=== PATIENT | male | born 1960 | race Caucasian/White ===

== ENCOUNTER 2016-08-05 09:44 | Emergency (ER) | payer OTHER ==
[~2016-08-05] VITALS: Ht 177.8 cm; Wt 113.1 kg
[~2016-08-05 09:44] MED LIST: ONDA4TAB7 SL
[2016-08-05 09:47] VITALS: Ht 177.8 cm; Wt 113.1 kg
[2016-08-05] MEDS ORDERED: MoRPHine SULFATE 10 MG/ML CARP/VIAL IV STA (10:00)
[2016-08-05] MEDS ORDERED: ONDANSETRON INJ 2 MG/ML 2 ML VIAL IV STA (10:00)
[2016-08-05] MEDS ORDERED: SODIUM CHLORIDE 0.9% 1000ML 1,000 ML IV STA (10:00)
[2016-08-05] MEDS ORDERED: OPTIRAY 320 IV PRN (10:15)
[2016-08-05 10:16] LABS: BASO % 0.1 %; BASO ABS # 0.01 K/uL (0-0.2); COMPLETE YES; EOS % 0.1 %; HEMATOCRIT 48.9 % (42-52); IG% 0.2 %; LYMPH % 7.3 %; LYMPH ABS # 0.65 K/uL (1.2-3.4); MEAN CELL VOLUME 89.2 fL (80-100); MEAN CORPUSCULAR HEMOGLOBIN 30.7 pg (25-34); MEAN CORPUSCULAR HGB CONC 34.4 g/dl (32-36); MEAN PLATELET VOLUME 9.5 fL (7.4-10.4); MONO % 2.1 %; NEUT % 90.2 %; PLATELET COUNT 192 K/uL (130-400); RED BLOOD COUNT 5.48 M/uL (4.7-6.1); WHITE BLOOD COUNT 8.88 K/uL (4.8-10.8)
[2016-08-05 10:38] LABS: BUN/CREATININE RATIO 9.4 (10-20); CALCIUM 9.7 mg/dl (8.5-10.1); CREATININE 1.1 mg/dl (0.60-1.40); POTASSIUM 4.1 mmol/L (3.5-5.1)
--- NOTE | 2016-08-05 12:00 | DIAGNOSTIC IMAGING REPORT ---
CT SCAN OF THE ABDOMEN AND PELVIS WITH IV CONTRAST CLINICAL HISTORY: Epigastric abdominal pain. COMPARISON STUDY: Abdominal CT dated 02/10/2013. TECHNIQUE: Following the IV administration of 119 cc of Optiray 320, CT scan of the abdomen and pelvis is performed from the lung bases to the proximal femora. Images are reviewed in the axial, sagittal, and coronal planes. IV contrast was administered without complication. Automated dose control exposure was utilized. CT DOSE: 1248.43 mGy.cm FINDINGS: Lung bases: The heart is normal in size and without pericardial effusion. Coronary artery calcifications are noted. There is a small hiatal hernia. A calcification containing nodule in the right middle lobe is unchanged. The lung bases are otherwise clear. Liver: The contrast-enhanced liver is enlarged, measuring 22 cm in length. The liver demonstrates diffusely diminished attenuation consistent with hepatic steatosis. Fatty sparing is seen adjacent to the gallbladder fossa. There is no intrahepatic biliary ductal dilatation. The hepatic veins and portal veins are patent. Gallbladder: Unremarkable. Spleen: Normal in size and attenuation. Pancreas: Unremarkable. Adrenal glands: Unremarkable. Kidneys: The contrast enhanced kidneys are normal in size. There is mild to moderate right hydronephrosis, with postoperative change seen at the right ureteropelvic junction. The right ureter is normal in caliber. There is no left-sided Hydronephrosis. The kidneys enhance symmetrically. A 1.2 cm cyst is seen in the right upper pole. Additional subcentimeter cortical hypodensities also likely represent cysts but are too small for definitive characterization. Abdominal vasculature: The abdominal aorta is normal in course and caliber noting minimal atherosclerotic calcification. Bowel: The small bowel and colon are normal in course and caliber. There is mild colonic diverticulosis without CT evidence of acute diverticulitis. Mild colonic fecal retention is observed. The appendix is well-visualized and normal. Peritoneum: There is no intraperitoneal free air or abdominal ascites. There is a fat-containing umbilical hernia. Lymphadenopathy: None. Pelvic viscera: The bladder, prostate, and seminal vesicles are normal as visualized. Skeletal structures: There is mild lumbosacral spondylosis. Degenerative changes noted at the sacroiliac joints. No lytic or blastic lesions are seen. IMPRESSION: 1. There are no acute infectious or inflammatory findings in the abdomen or pelvis. 2. There is mild to moderate right hydronephrosis with surgical clips seen at the right ureteropelvic junction. The right ureter is normal in caliber and this is similar appearance to the 02/10/2013 examination. 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 Correlation with the clinical findings and the patient's medical history required. 3. The kidneys enhance symmetrically. There is no left-sided hydronephrosis. 4. Hepatomegaly and severe hepatic steatosis. 5. Mild colonic diverticulosis without CT evidence of acute diverticulitis. 6. Additional findings as above. Electronically signed by: Anthony Jesus M.D. 08/05/2016 11:57 AM Dictated Date/Time: 08/05/2016 11:34 AM
[2016-08-05] MEDS ORDERED: MoRPHine SULFATE 4 MG/ML 1 ML CARP\\VIAL IV STA (12:57)
--- NOTE | 2016-08-05 13:45 | DIAGNOSTIC IMAGING REPORT ---
SINGLE VIEW CHEST CLINICAL HISTORY: Atypical chest pain. FINDINGS: An AP, portable, upright chest radiograph is compared to study dated 02/10/2013. Correlation is made with abdominal CT dated 08/05/2016. The examination is degraded by portable technique and apical positioning. The cardiomediastinal silhouette is unremarkable. There is mild elevation of the right hemidiaphragm. The lungs and pleural spaces are clear. No pneumothorax is seen. The bony thorax is grossly intact. IMPRESSION: No active disease in the chest. Electronically signed by: Anthony Jesus M.D. 08/05/2016 1:44 PM Dictated Date/Time: 08/05/2016 1:43 PM
--- NOTE | 2016-08-05 15:40 | EMERGENCY ROOM VISIT NOTE ---
History Report prepared by Laurita: Shanon Nuñez Under the Supervision of: Dr. Jaime Lopez D.O. First contact with patient: 09:51 Chief Complaint: ABDOMINAL PAIN Stated Complaint: ABD. PAIN Nursing Triage Summary: pt c/o pain in abd up in diaphragm area started last night around 2200. feels nauseated vomited x2 this am, denies any diarrhea History of Present Illness The patient is a 56 year old male who presents to the Emergency Room with complaints of worsening epigastric abdominal pain that started last night around 2200. He states that it feels like "someone ramming an ice pick into his gut." The pain does not radiate. The pain started after he ate a half of a box of Cheerios and drank a Coke. The patient has experienced similar pain the past and was diagnosed with severe gas. The pain is relieved with belching, but only momentarily. He states that the pain is not influenced by movement or breathing. The patient is also experiencing nausea and vomiting that started last night. His most recent bowel movement was this morning and he states that it was normal. He denies hemoptysis, diarrhea, pain or burning with urination, and lower extremity edema. He also denies any history of blood clots or cancer, along with any recent trips. The patient still has his gallbladder and appendix. Source of History: patient Onset: last night around 2200 Position: abdomen (epigastric) Quality: other ("someone ramming an ice pick into his gut" ) Timing: worsening Modifying Factors (Relieving): other (belching) Associated Symptoms: + nausea, + vomiting, No diarrhea, No urinary symptoms (pain or burning with urination) Note: no hemoptysis, no lower extremity edema Review of Systems See HPI for pertinent positives & negatives. A total of 10 systems reviewed and were otherwise negative. Past Medical & Surgical Medical Problems: (1) Hydronephrosis Family History No pertinent family history Social History Smoking Status: Never Smoker Alcohol Use: occasionally Occupation Status: employed Current/Historical Medications No Active Prescriptions or Reported Meds Allergies Coded Allergies: No Known Allergies (Verified , 08/28/02) Uncoded Allergies: ANTIBIOTIC ? (Allergy, Unknown, redness,fever,shakes, 02/10/13) N (Allergy, Unknown, 08/28/02) Physical Exam Vital Signs Date Time Temp Pulse Resp B/P Pulse Ox O2 Delivery O2 Flow Rate FiO2 08/05/16 16:47 36.5 73 23 155/99 92 08/05/16 16:39 73 23 155/99 92 08/05/16 16:34 69 21 93 08/05/16 16:29 69 15 95 08/05/16 16:24 76 16 91 08/05/16 16:19 84 25 90 08/05/16 16:15 159/113 08/05/16 16:14 70 24 91 08/05/16 16:09 76 24 90 08/05/16 16:04 84 23 92 08/05/16 15:59 79 25 93 08/05/16 15:54 86 24 92 08/05/16 15:49 71 22 93 08/05/16 15:44 85 25 91 08/05/16 15:39 77 19 90 08/05/16 15:34 74 20 90 08/05/16 15:29 72 22 90 08/05/16 15:24 92 26 90 08/05/16 15:19 72 22 94 08/05/16 15:14 91 28 90 08/05/16 15:09 96 23 92 08/05/16 14:59 76 16 94 08/05/16 14:54 75 22 90 08/05/16 14:50 110 16 123/89 96 Room Air 08/05/16 14:49 101 17 94 08/05/16 14:45 65 Room Air 08/05/16 14:44 73 21 96 08/05/16 14:39 89 21 123/89 84 08/05/16 14:34 73 21 80 08/05/16 14:29 73 20 84 08/05/16 14:24 77 22 85 08/05/16 14:19 73 20 75 08/05/16 14:14 79 24 80 08/05/16 14:09 72 20 88 08/05/16 14:04 84 21 88 08/05/16 13:59 77 24 87 08/05/16 13:54 74 20 95 08/05/16 13:49 70 14 87 08/05/16 13:45 176/101 08/05/16 13:44 74 20 76 08/05/16 13:39 78 23 82 08/05/16 13:34 75 22 76 08/05/16 13:29 78 22 82 08/05/16 13:26 66 1/21/17 13:24 86 23 85 08/05/16 13:19 78 18 90 08/05/16 13:11 78 20 165/98 93 08/05/16 13:08 165/98 08/05/16 11:56 84 16 196/116 97 Room Air 08/05/16 09:47 36.5 62 18 168/115 96 Room Air Physical Exam GENERAL: alert, sitting up in bed, uncomfortable appearing and holding epigastric region, well nourished, no distress, non-toxic EYE EXAM: normal conjunctiva OROPHARYNX: no exudate, no erythema, lips, buccal mucosa, and tongue normal and mucous membranes are moist NECK: supple, no nuchal rigidity, no adenopathy, non-tender LUNGS: Clear to auscultation. Normal chest wall mechanics HEART: no murmurs, S1 normal and S2 normal ABDOMEN: abdomen soft, tender to palpation in epigastric region, normo-active bowel sounds, no masses, no rebound or guarding. BACK: Back is symmetrical on inspection and there is no deformity, no midline tenderness, no CVA tenderness. SKIN: no rashes and no bruising UPPER EXTREMITIES: upper extremities are grossly normal. LOWER EXTREMITIES: No pitting edema. NEURO EXAM: Normal sensorium, cranial nerves II-XII grossly intact, normal speech, no gross weakness of arms, no gross weakness of legs. Medical Decision & Procedures ER Provider Diagnostic Interpretation: Xray results per the radiologist and my interpretation. Other results have been interpreted by the radiologist and reviewed by me. SINGLE VIEW CHEST IMPRESSION: No active disease in the chest. Electronically signed by: Anthony Jesus M.D. 08/05/2016 1:44 PM Dictated Date/Time: 08/05/2016 1:[address] SCAN OF THE ABDOMEN AND PELVIS WITH IV CONTRAST IMPRESSION: 1. There are no acute infectious or inflammatory findings in the abdomen or pelvis. 2. There is mild to moderate right hydronephrosis with surgical clips seen at the right ureteropelvic junction. The right ureter is normal in caliber and this is similar appearance to the 02/10/2013 examination. 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 Correlation with the clinical findings and the patient's medical history required. 3. The kidneys enhance symmetrically. There is no left-sided hydronephrosis. 4. Hepatomegaly and severe hepatic steatosis. 5. Mild colonic diverticulosis without CT evidence of acute diverticulitis. 6. Additional findings as above. Electronically signed by: Anthony Jesus M.D. 08/05/2016 11:57 AM Laboratory Results 08/05/16 10:05 Red Blood Count 5.48, Mean Corpuscular Volume 89.2, Mean Corpuscular Hemoglobin 30.7, Mean Corpuscular Hemoglobin Concent 34.4, Mean Platelet Volume 9.5, Neutrophils (%) (Auto) 90.2, Lymphocytes (%) (Auto) 7.3, Monocytes (%) (Auto) 2.1, Eosinophils (%) (Auto) 0.1, Basophils (%) (Auto) 0.1, Neutrophils # (Auto) 8.00, Lymphocytes # (Auto) 0.65, Monocytes # (Auto) 0.19, Eosinophils # (Auto) 0.01, Basophils # (Auto) 0.01 08/05/16 10:05 Test 08/05/16 10:05 08/05/16 11:05 08/05/16 17:00 White Blood Count 8.88 K/uL (4.8-10.8) Red Blood Count 5.48 M/uL (4.7-6.1) Hemoglobin 16.8 g/dL (14.0-18.0) Hematocrit 48.9 % (42-52) Mean Corpuscular Volume 89.2 fL (80-100) Mean Corpuscular Hemoglobin 30.7 pg (25-34) Mean Corpuscular Hemoglobin Concent 34.4 g/dl (32-36) Platelet Count 192 K/uL (130-400) Mean Platelet Volume 9.5 fL (7.4-10.4) Neutrophils (%) (Auto) 90.2 % Lymphocytes (%) (Auto) 7.3 % Monocytes (%) (Auto) 2.1 % Eosinophils (%) (Auto) 0.1 % Basophils (%) (Auto) 0.1 % Neutrophils # (Auto) 8.00 K/uL (1.4-6.5) Lymphocytes # (Auto) 0.65 K/uL (1.2-3.4) Monocytes # (Auto) 0.19 K/uL (0.11-0.59) Eosinophils # (Auto) 0.01 K/uL (0-0.5) Basophils # (Auto) 0.01 K/uL (0-0.2) RDW Standard Deviation 42.6 fL (36.4-46.3) RDW Coefficient of Variation 13.0 % (11.5-14.5) Immature Granulocyte % (Auto) 0.2 % Immature Granulocyte # (Auto) 0.02 K/uL (0.00-0.02) Anion Gap 13.0 mmol/L (3-11) Est Creatinine Clear Calc Drug Dose 94.4 ml/min Estimated GFR () 86.5 Estimated GFR (Non- 74.6 BUN/Creatinine Ratio 9.4 (10-20) Calcium Level 9.7 mg/dl (8.5-10.1) Total Bilirubin 0.5 mg/dl (0.2-1) Direct Bilirubin 0.2 mg/dl (0-0.2) Aspartate Amino Transf (AST/SGOT) 52 U/L (15-37) Alanine Aminotransferase (ALT/SGPT) 86 U/L (12-78) Alkaline Phosphatase 114 U/L (45-117) Total Protein 8.0 gm/dl (6.4-8.2) Albumin 4.2 gm/dl (3.4-5.0) Lipase 219 U/L (73-393) Troponin I < 0.015 ng/ml (0-0.045) Laboratory results per my review. Medications Administered Medications (Trade) Dose Ordered Sig/Cj Route Start Time Stop Time Status Last Admin Dose Admin Sodium Chloride (Nss 1000ml) 1,000 ml @ 999 mls/hr Q1H1M STAT IV 08/05/16 10:00 08/05/16 11:00 DC 08/05/16 10:00 999 MLS/HR Morphine Sulfate (MoRPHine SULFATE INJ) 6 mg NOW STAT IV 08/05/16 10:00 08/05/16 10:03 DC 08/05/16 10:10 6 MG Ondansetron HCl (Zofran Inj) 4 mg NOW STAT IV 08/05/16 10:00 08/05/16 10:03 DC 08/05/16 10:09 4 MG Morphine Sulfate (MoRPHine SULFATE INJ) 4 mg NOW STAT IV 08/05/16 12:57 08/05/16 12:58 DC 08/05/16 13:10 4 MG ECG Indication: abdominal pain Rate (beats per minute): 63 Rhythm: sinus rhythm Findings: RBBB (incomplete), left axis deviation Change: Repeat EKG on 08/05/2016 showed sinus rhythm, rate of 64, left axis deviation, no ectopy, R-R' in septal leads, no change from first EKG on 08/05/2016 ED Course ED COURSE: Vital signs were reviewed and showed hypertension. The patients medical record was reviewed The above diagnostic studies were performed and reviewed. ED treatments and interventions as stated above. 0954: The patient was evaluated in room B8. A complete history and physical examination was performed. 1000: Ordered Zofran 4 mg IV, Morphine Sulfate 6 mg IV, Sodium Chloride 1000 ml @ 999 mls/hr IV 1033: I reassessed the patient. His pain has improved with the morphine. 1206: I reevaluated the patient. He developed left-sided chest pain that he described as sharp and stabbing. The pain lasted for several seconds and radiated from his abdomen into his chest. The pain was relieved when he pushed on his chest. A repeat EKG was performed. 1257: Ordered Morphine Sulfate 4 mg IV 1356: Upon reevaluation, the patient is feeling better. His ride home is here now. I discussed my findings with the patient and he understands and agrees with the treatment plan. Based on the patients age, coexisting illnesses, exam and lab findings the decision to treat as an outpatient was made. The patient remained stable while under my care. The patient appeared well at the time of discharge. 1420: The nurse informed me that the patient was hypoxic while he was sleeping, so we are going to watch him for a little while before he leaves. 1630: I reassessed and updated the patient. He is going home now. Medical Decision Differential diagnoses includes but is not limited to gastritis, peptic ulcer disease, GERD, gallbladder disease, pancreatitis, small bowel obstruction, acute coronary syndrome, pericarditis, ischemic bowel, irritable bowel disease, irritable bowel syndrome, appendicitis, diverticulitis, malignancy, hernia, urinary tract infection, torsion, perforation, trauma, infectious. Patient is a 56-year-old male who presents the ER for epigastric abdominal pain which started last night has been persistent. He notes that he feels very bloated. He has had this once before in the past. Normal bowel movements. No fevers. Labs including CBC, BMP, bilirubin and lipase are unremarkable. LFTs are slightly elevated at 52 and 86. His troponin was negative with pain has been present since last night. EKG was unremarkable. Chest x-ray was normal. While in the ER he did complain of pain radiating from his belly up into his chest which improved with holding his chest wall. CT of his abdomen and pelvis was unremarkable with exception of some swelling of his proximal kidney which is secondary to a surgery performed as a child per the patient. I do believe that this was more muscle skeletal in nature/abdominal. EKG was unremarkable at this time and unchanged. Patient was given 2 doses of morphine. When he sleeps he does become hypoxic and apneic. He clearly has obstructive sleep apnea. He was updated regards to this. He has not seen PCP since the early . I also believe that has undiagnosed hypertension. He was informed of this. He notes he has a grandchild and will see/obtain a new primary care doctor early next week for obstructive sleep apnea and uncontrolled hypertension. As to his abdominal pain I am uncertain of the etiology at this point. He has no urinary symptoms and consequently did not wait for urine prior to discharge. I did hold him for extra several hours for a total of 8 to allow the morphine to wear off as he has obstructive sleep apnea. He is discharged around 5:30 PM the follow-up with a new primary care doctor early next week. Discussed with Pt concerning signs and symptoms to watch out for. Pt was instructed to follow up with their PCP and discussed with the patient their option to return to the ED at anytime for persistent or worsening symptoms. The appropriate anticipatory guidance and out-patient management, including indications for return to the emergency department, were explained at length to the patient and understood. Impression Primary Impression: Diffuse abdominal pain Additional Impressions: Sleep apnea Hypertension Scribe Attestation The scribe's documentation has been prepared under my direction and personally reviewed by me in its entirety. I confirm that the note above accurately reflects all work, treatment, procedures, and medical decision making performed by me. Departure Information Dispostion Home / Self-Care Prescriptions No Active Prescriptions or Reported Meds Referrals No Doctor, Assigned (PCP) Forms Call Back Authorization, HOME CARE DOCUMENTATION FORM, IMPORTANT VISIT INFORMATION Patient Instructions Abdominal Pain - [facility], Formerly [facility], [facility] Additional Instructions Please follow up with your primary care doctor with in the next 24 hours. Any worsening of your symptoms, please return to the ED immediately. This includes any chest pain, shortness of breath, blood in her stool, belly pain, passing out , worsening pain, fevers greater than 100.4, or any other concerning signs or symptoms from your standpoint. You were given medications during this visit that will inhibit your ability to drive, operate machinery and work. Please do NOT drive, operate machinery or work for the next 12hrs. Please take Tylenol or Motrin as needed for the pain. Again you must follow with your primary care doctor for abdominal recheck in 24 hours. Problem Qualifiers Additional Impressions: Sleep apnea Sleep apnea type: unspecified type Qualified Codes: G47.30 - Sleep apnea, unspecified Hypertension Hypertension type: unspecified secondary hypertension Qualified Codes: I15.9 - Secondary hypertension, unspecified
[2016-08-05 16:47] VITALS: BP 155/99; PULSE 73; TEMP 36.5; O2SAT 92
[2016-08-05 17:47] LABS: URINE APPEARANCE CLEAR (CLEAR); URINE BILIRUBIN NEG (NEG); URINE COLOR YELLOW; URINE EPITHELIAL CELL AUTO 0-5 /lpf (0-5); URINE NITRITE NEG (NEG); URINE SPECIFIC GRAVITY > 1.045 (1.000-1.030); UROBILINOGEN NEG (NEG); ZZUR CULT IF INDIC CLEAN CATCH NO
[2016-08-05 17:52] LABS: MANUAL MICROSCOPIC REQUIRED? NO; REVIEW REQ? NO
== END 2016-08-05 16:47 | disposition home or self-care (01) ==
LOC: C.EDB 09:50
DX: R10.13 Epigastric pain (principal); G47.30 Sleep apnea, unspecified; I15.9 Secondary hypertension, unspecified

== ENCOUNTER → 2016-08-30 | Outpatient (CLI) | payer OTHER ==
--- NOTE | 2016-08-31 06:47 | SPLIT NIGHT TECHNICIAN REPORT ---
[facility] Split Night Polysomnogram - Fleet Technician Report Study date: 08/30/2016 Referring Physician: Jamie LUONG M.D. Name: FLASH BLACKBURN Fleet Technician: RENETTA Montalvo. Date of : 1960 Height: 56 years, Height 5' 10.5" Sex: Male Weight: 244 lbs Age: 56 Neck Circum: 19.5 INCHES BMI: Medications: 34.51 NONE LISTED Patient History PATIENT HAS HISTORY OF FEELING TIRED AND FATIGUE DURING THE DAY. ALSO, HAS WITNESSED APNEAS AND SNORING. HE IS HERE TODAY FOR AN EVALUATION OF HAN. ES S= 13 RM 5 Parameters Monitored NPSG: E1-M2, E2-M1, Fp1-M2, Fp2-M1, F3-M2, F4-M2, F4-M1, C3-M2, C4-M2, C4-M1, O1-M2, O2-M2, O2-M1, T3-M2, T4-M1, P3-M2, P4-M1, CHIN1, CHIN2, HR, EKG, Legs, PFLOW, SNOR, FLOW, CFLOW, Tidal Volume, THOR, ABDO, SpO2, PLTH, CPRESS, ETCO2 Wave, ETCO2, pH SLEEP SUMMARY DATA DIAGNOSTIC TREATMENT Lights Out: 10:11:14 PM 12:49:14 AM Lights On: 12:38:44 AM 6:21:44 AM Total Recording Time (TRT): 148.0 min. 332.5 min. Total Sleep Time (TST): 133.5 min. 287.0 min. NREM Time: 133.5 min. 187.0 min. REM Time: 0.0 min. 100.0 min. Sleep Period Time (SPT): 143.5 min. 328.5 min. Sleep Efficiency (SE): 91 % 86 % Sleep Latency: 4.0 min. 4.0 min. Arousal Index: 69.7 21.3 PAP Treatment Levels: 4, 6, 7, 8, 8/4, 10/6, 11/7, 12/8, 13/9, 14/10, 15/11, 16/12, 17/13, 18/14, 19/15, 20/15, 21/15, 22/15, 23/15, 24/16, 25/17, 26/18, 27/18 * Optimal Pressure(s) SLEEP STAGING DATA DIAGNOSTIC TREATMENT Duration (min) TST % Duration (min) TST % Stage Wake: 14.0 min. -- 45.5 min. -- WASO: 10.0 min. -- 41.5 min. -- NREM: 133.5 min. 100 % 187.0 min. 65 % Stage N1: 11.0 min. 8 % 32.5 min. 11 % Stage N2: 122.5 min. 92 % 132.0 min. 46 % Stage N3: 0.0 min. 0 % 22.5 min. 8 % REM: 0.0 min. 0 % 100.0 min. 35 % POSITIONAL DATA Event Count Index Event Count Index Supine: 130 91.3 169 41.7 Supine NREM: 130 91.3 131 46.1 Supine REM: N/A N/A 38 31 Non-Supine: 62 77.4 3 4.0 Non-Supine NREM: 62 77.4 2 7.3 Non-Supine REM: N/A N/A 1 2.1 AROUSAL SUMMARY DATA: Event Count Index Event Count Index Apnea Arousals: 117 67.9 66 25.7 Hypopnea Arousals: 21 9.4 9 1.9 Snore Arousals: 3 1.3 12 2.5 PLM Arousals: 3 1.3 0 0.0 Non-Specific Arousals: 8 3.6 15 3.1 Total Arousals: 155 69.7 102 21.3 MYOCLONUS (PLM) Event Count Index Event Count Index PLM: 35 15.7 0 0.0 PLM AROUSAL: 3 1.3 0 0.0 PLM W/O AROUSAL 35 15.7 0 0.0 PLM W/RESP EVENT 12 0.0 0 0.0 MYOCLONUS (PLM) Event Count Index Event Count Index LM: 4 82.7 55 11.5 LM AROUSAL: 4 1.8 3 0.6 LM W/O AROUSAL LM W/RESP EVENT LM NON SPECIFIC 77 34.6 36 7.5 HEART RATE DATA DIAGNOSTIC TREATMENT Sleep (bpm): 66 66 REM (bpm): N/A 93 NREM (bpm): 85 92 Tachycardia Count: 0 0 Tachycardia Duration: 0.00 0 Bradycardia Count: 0 0 Bradycardia Duration: 0.00 0 DIAGNOSTIC PORTION TREATMENT PORTION RESPIRATORY DATA Event Count Index Event Count Index AHI: -- 86.3 -- 35.7 RDI: -- 86.3 -- 36 Obstructive Apnea: 139 62.5 19 4.0 Central Apnea: 2 0.9 54 11.3 Mixed Apnea: 10 4.5 50 10.5 Hypopnea: 41 18.4 48 10.0 RERA: 0 0.0 1 0.2 Total Apneas: 151 67.9 123 25.7 RESPIRATORY DATA REM NREM SLEEP REM NREM SLEEP Supine Position: Obstructive Apneas: N/A 88 88 3 16 19 Central Apneas: N/A 1 1 4 50 54 Mixed Apneas: N/A 2 2 14 36 50 Hypopneas: N/A 39 39 16 29 45 RERA N/A 0 0 1 0 1 Total Supine Events: N/A 130 130 38 131 169 Supine AHI: N/A 91.3 91.3 31 46.1 41.7 Supine RDI: N/A 91.3 91.3 31.9 46.1 41.9 REM NREM SLEEP REM NREM SLEEP Non-Supine Position: Obstructive Apneas: N/A 51 51 0 0 0 Central Apneas: N/A 1 1 0 0 0 Mixed Apneas: N/A 8 8 0 0 0 Hypopneas: N/A 2 2 1 2 3 RERA N/A 0 0 0 0 0 Total Supine Events: N/A 62 62 1 2 3 Supine AHI: N/A 77.4 77.4 2.1 7.3 4.0 Supine RDI: N/A 77.4 77.4 2.1 7.3 4.0 OXYGEN DESTAURATION DATA: Event Count Index Event Count Index REM Desaturations: N/A N/A 34 20.4 NREM Desaturations: 170 76.4 132 42.4 SNORE DATA DIAGNOSTIC TREATMENT Snore Time: 18.4 12:53:14 AM Snore TST%: 6 8 Snore Arousal Count: 3 12 Snore Arousal Index: 1.3 2.5 Desaturation Event Summary: Minimum %SpO2 Event Count Mean/Min/Max Duration(sec.) Desaturation Index % Time In Bed > 90 321 34.4 / 7.0 / 97.5 66.6 60.6 86 - 90 62 26.8 / 7.0 / 42.8 53.4 14.6 81 - 85 7 21.6 / 7.8 / 31.0 7.2 12.2 76 - 80 2 13.0 / 8.5 / 17.5 3.2 7.8 71 - 75 1 13.8 / 13.8 / 13.8 3.2 3.9 66 - 70 0 N/A 0.0 0.9 61 - 65 0 N/A 0.0 0.1 56 - 60 0 N/A 0.0 0.0 51 - 55 0 N/A 0.0 0.0 < 50 0 N/A 0.0 0.0 OXYGEN SATURATION DATA DIAGNOSTIC TREATMENT SpO2 Mean Sleep: 85 % 92 % SpO2 Mean REM: N/A % 93 % SpO2 Mean NREM: 85 % 92 % SpO2 Minimum Sleep: 65 % 63 % SpO2 Minimum REM: N/A % 64 % SpO2 Minimum NREM: 65 % 63 % Time Below 90% (TST): 91.9 65.2 Time Below 88% (TST): 81.6 52.2 Total REM NREM Awake <50% 0.0 min. 0.0 min. 0.0 min. 0.0 min. 51 - 60% 0.1 min. 0.0 min. 0.0 min. 0.1 min. 61 - 70% 5.0 min. 0.7 min. 3.1 min. 1.2 min. 71 - 80% 55.6 min. 6.6 min. 43.0 min. 6.0 min. 81 - 90% 127.7 min. 15.1 min. 102.9 min. 9.7 min. 91 - 100% 289.3 min. 77.7 min. 169.5 min. 42.1 min. Average 90 93 89 91 Minimum SpO2 60 64 63 60 Desaturation Event Index 44.1 20.4 56.5 22.2 # Desat. Events below 89% 296 23 265 8 Time(%) with Saturation below 89% 33.1 3.6 26.6 2.8 Time(min.) with Saturation below 89% 157.9 17.2 127.3 13.4 Recording Fleet Technician Comments: Mr. Blackburn slept in the right and supine positions. PAC's noted. Leg movements noted. No bruxism noted. Snoring was noted and scored as a 4 on a scale of 1 through 5. (0=no snoring, 5=snoring loud enough to be heard through a closed door or down the rios way) At 12:38 am Mr. Blackburn has met specific Split-Night criteria during the diagnostic portion of this study. CPAP was initiated at +4 CMH2O and up-titrated to a level of +8 CMH2O. From pressures 4-8cwp central and mixed apneas were significantly noted. Therefore, I switched to BIPAP starting at 8/4. I up-titrated to 15/11 and central and mixed apneas were still significantly noted. I started a rate of 10 due to the central and mixed apneas. I up-titrated to 27/18 and increased the rate to 14 due to central and mixed apneas. A Resmed Mirage Quattro full face size medium mask was used during titration Mr. Blackburn awoke to use the restroom 0 times during the night. Mr. Blackburn stated I slept as well as I do when I am in my own bed. Final Pressure Settings: 27/18 with a rate of 14. The final report will be interpreted and signed by a sleep physician. The completed physician report will then be placed in the patient medical record. Therapy Event: Therapy (cm H20) 0 4 6 7 8 8/4 10/6 11/7 Total Time at Pressure (min.) 147.5 19.3 15.3 8.0 14.5 9.2 6.3 6.7 TST at Pressure (min.) 133.5 7.8 6.8 5.5 11.0 6.7 5.3 5.7 # Periods 1 1 1 1 1 1 1 1 Sleep Onset (min.) 4.0 4.0 0.0 0.0 0.0 0.0 0.0 0.0 REM Onset (min.) N/A N/A N/A N/A N/A N/A N/A N/A Sleep Efficiency % 90 40 44 68 75 72 84 85 Wakefulness (%) 9.5 59.5 55.4 31.4 24.2 27.1 15.8 14.8 Wakefulness (min.) 14.0 11.5 8.5 2.5 3.5 2.5 1.0 1.0 NREM 1 (%) 7.5 35.3 41.3 10.4 7.8 9.4 7.9 22.3 NREM 1 (min.) 11.0 6.8 6.3 0.8 1.1 0.9 0.5 1.5 NREM 2 (%) 83.1 5.2 3.3 58.2 68.0 63.4 76.2 62.9 NREM 2 (min.) 122.5 1.0 0.5 4.6 9.9 5.8 4.8 4.2 NREM 3 (%) 0.0 0.0 0.0 0.0 0.0 0.0 0.0 0.0 NREM 3 (min.) 0.0 0.0 0.0 0.0 0.0 0.0 0.0 0.0 REM (%) 0.0 0.0 0.0 0.0 0.0 0.0 0.0 0.0 REM (min.) 0.0 0.0 0.0 0.0 0.0 0.0 0.0 0.0 # Arousals 155 10 8 6 11 6 7 5 Arousal Index 69.7 76.6 70.2 65.8 60.1 53.6 79.1 52.3 # Snore 325 3 2 3 9 4 6 6 Snore Index 146.1 23.0 17.5 32.9 49.1 35.7 67.8 62.8 AHI 86.3 99.6 87.7 87.7 76.4 62.6 56.5 62.8 AHI Supine 91.3 99.6 87.7 87.7 76.4 62.6 56.5 62.8 AHI Non-Supine 77.4 N/A N/A N/A N/A N/A N/A N/A NREM AHI 86.3 99.6 87.7 87.7 76.4 62.6 56.5 62.8 REM AHI N/A N/A N/A N/A N/A N/A N/A N/A RDI 86.3 99.6 87.7 87.7 76.4 62.6 56.5 62.8 # Obstructive 139 0 0 0 0 0 0 0 # Central Ap 2 11 9 8 8 3 4 2 # Mixed 10 0 1 0 6 4 1 4 # Hypopneas 41 2 0 0 0 0 0 0 RERAS 0 0 0 0 0 0 0 0 Total Respiratory Events 192 13 10 8 14 7 5 6 Time Below SpO2 89.00% (min.) 86.3 0.3 0.7 1.3 4.2 2.6 2.4 2.9 Mean NREM SpO2 (%) 85 94 94 93 90 89 88 87 Mean REM SpO2 (%) N/A N/A N/A N/A N/A N/A N/A N/A Mean Sleep SpO2 (%) 85 94 94 93 90 89 88 87 Min NREM SpO2 (%) 65 83 81 79 71 72 75 72 Min REM SpO2 (%) N/A N/A N/A N/A N/A N/A N/A N/A Position Supine (min.) 85.5 7.8 6.8 5.5 11.0 6.7 5.3 5.7 Position Non-supine (min.) 48.0 0.0 0.0 0.0 0.0 0.0 0.0 0.0 LM Index Sleep 98.4 23.0 26.3 43.8 27.3 17.9 22.6 20.9 LM Index NREM 98.4 23.0 26.3 43.8 27.3 17.9 22.6 20.9 LM Index REM N/A N/A N/A N/A N/A N/A N/A N/A Mean Heart Rate (bpm) 66 59 61 60 60 58 60 60 Min Heart Rate (bpm) 53 54 54 53 51 51 52 50 Therapy (cm H20) 06/22 13 14 15 16 1713 1814 19/15 Total Time at Pressure (min.) 6.0 5.9 5.1 21.4 7.4 10.2 9.3 8.4 TST at Pressure (min.) 6.0 5.9 5.1 19.9 7.4 9.7 8.8 8.4 # Periods 1 1 1 1 1 1 1 1 Sleep Onset (min.) 0.0 0.0 0.0 0.0 0.0 0.0 0.0 0.0 REM Onset (min.) N/A N/A N/A 14.1 1.2 0.0 0.0 0.7 Sleep Efficiency % 100 100 100 93 100 95 94 100 Wakefulness (%) 0.0 0.0 0.0 7.0 0.0 4.9 5.4 0.0 Wakefulness (min.) 0.0 0.0 0.0 1.5 0.0 0.5 0.5 0.0 NREM 1 (%) 0.0 0.0 0.0 18.7 0.0 0.0 5.4 0.0 NREM 1 (min.) 0.0 0.0 0.0 4.0 0.0 0.0 0.5 0.0 NREM 2 (%) 100.0 36.1 65.8 58.0 16.0 0.0 2.8 8.8 NREM 2 (min.) 6.0 2.1 3.4 12.4 1.2 0.0 0.3 0.7 NREM 3 (%) 0.0 63.9 34.2 0.0 0.0 0.0 0.0 0.0 NREM 3 (min.) 0.0 3.7 1.8 0.0 0.0 0.0 0.0 0.0 REM (%) 0.0 0.0 0.0 16.3 84.0 95.1 86.4 91.2 REM (min.) 0.0 0.0 0.0 3.5 6.2 9.7 8.1 7.6 # Arousals 1 0 1 13 4 1 3 3 Arousal Index 10.0 0.0 11.7 39.1 32.3 6.2 20.4 21.5 # Snore 8 39 16 25 7 15 12 22 Snore Index 80.1 399.0 187.1 75.2 56.6 92.7 81.6 157.8 AHI 70.1 71.6 81.9 54.2 48.5 61.8 40.8 43.0 AHI Supine 70.1 71.6 81.9 54.2 48.5 61.8 40.8 43.0 AHI Non-Supine N/A N/A N/A N/A N/A N/A N/A N/A NREM AHI 70.1 71.6 81.9 62.1 50.6 N/A 78.4 0.0 REM AHI N/A N/A N/A 17.1 48.1 61.8 37.2 47.2 RDI 70.1 71.6 81.9 54.2 48.5 61.8 40.8 43.0 # Obstructive 1 4 5 3 0 1 0 0 # Central Ap 0 0 0 4 2 2 0 0 # Mixed 6 0 0 9 4 6 5 0 # Hypopneas 0 3 2 2 0 1 1 6 RERAS 0 0 0 0 0 0 0 0 Total Respiratory Events 7 7 7 18 6 10 6 6 Time Below SpO2 89.00% (min.) 3.5 3.7 3.7 9.5 3.7 3.4 4.2 2.6 Mean NREM SpO2 (%) 85 87 84 89 92 N/A 97 90 Mean REM SpO2 (%) N/A N/A N/A 87 87 89 88 92 Mean Sleep SpO2 (%) 85 87 84 88 88 89 89 91 Min NREM SpO2 (%) 70 78 68 63 83 N/A 94 85 Min REM SpO2 (%) N/A N/A N/A 64 68 67 73 77 Position Supine (min.) 6.0 5.9 5.1 19.9 7.4 9.7 8.8 8.4 Position Non-supine (min.) 0.0 0.0 0.0 0.0 0.0 0.0 0.0 0.0 LM Index Sleep 0.0 0.0 0.0 6.0 8.1 6.2 20.4 28.7 LM Index NREM 0.0 0.0 0.0 3.7 0.0 N/A 78.4 0.0 LM Index REM N/A N/A N/A 17.1 9.6 6.2 14.9 31.5 Mean Heart Rate (bpm) 60 69 67 65 67 67 68 66 Min Heart Rate (bpm) 52 57 57 53 54 54 59 53 Therapy (cm H20) /15 21/15 22/15 23/15 24/16 25/17 26/18 27/18 Total Time at Pressure (min.) 6.1 5.1 7.0 33.2 7.8 13.5 57.6 49.1 TST at Pressure (min.) 6.1 5.1 7.0 31.2 7.8 13.0 48.6 48.1 # Periods 1 1 1 1 1 1 1 1 Sleep Onset (min.) 0.0 0.0 0.0 0.0 0.0 0.0 0.0 0.0 REM Onset (min.) 0.0 N/A N/A N/A 1.0 0.2 0.0 26.6 Sleep Efficiency % 100 100 100 94 100 96 84 98 Wakefulness (%) 0.0 0.0 0.0 6.0 0.0 3.7 15.6 2.0 Wakefulness (min.) 0.0 0.0 0.0 2.0 0.0 0.5 9.0 1.0 NREM 1 (%) 0.0 0.0 0.0 4.5 4.3 19.8 6.9 3.1 NREM 1 (min.) 0.0 0.0 0.0 1.5 0.3 2.7 4.0 1.5 NREM 2 (%) 44.7 100.0 100.0 63.9 12.5 33.4 25.0 38.9 NREM 2 (min.) 2.7 5.1 7.0 21.2 1.0 4.5 14.4 19.1 NREM 3 (%) 0.0 0.0 0.0 25.6 0.0 0.0 0.0 17.3 NREM 3 (min.) 0.0 0.0 0.0 8.5 0.0 0.0 0.0 8.5 REM (%) 55.3 0.0 0.0 0.0 83.3 43.1 52.4 38.7 REM (min.) 3.4 0.0 0.0 0.0 6.5 5.8 30.2 19.0 # Arousals 3 2 1 4 2 6 2 3 Arousal Index 29.5 23.7 8.5 7.7 15.4 27.7 2.5 3.7 # Snore 12 5 14 86 54 87 56 182 Snore Index 118.0 59.3 119.3 165.4 415.1 402.1 69.2 227.0 AHI 49.2 35.6 42.6 17.3 30.7 32.3 7.4 2.5 AHI Supine 49.2 35.6 42.6 17.3 30.7 32.3 50.3 2.5 AHI Non-Supine N/A N/A N/A N/A N/A N/A 4.0 N/A NREM AHI 44.0 35.6 42.6 17.3 0.0 50.2 13.0 2.1 REM AHI 53.4 N/A N/A N/A 36.9 10.3 4.0 3.2 RDI 49.2 35.6 42.6 17.3 30.7 32.3 7.4 3.7 # Obstructive 0 0 0 1 1 3 0 0 # Central Ap 0 0 0 1 0 0 0 0 # Mixed 0 0 0 2 0 2 0 0 # Hypopneas 5 3 5 5 3 2 6 2 RERAS 0 0 0 0 0 0 0 1 Total Respiratory Events 5 3 5 9 4 7 6 3 Time Below SpO2 89.00% (min.) 2.1 2.0 1.8 2.5 1.2 0.0 0.0 0.0 Mean NREM SpO2 (%) 91 90 91 93 94 95 95 95 Mean REM SpO2 (%) 91 N/A N/A N/A 92 94 95 96 Mean Sleep SpO2 (%) 91 90 91 93 92 95 95 96 Min NREM SpO2 (%) 81 78 74 74 92 90 90 92 Min REM SpO2 (%) 76 N/A N/A N/A 81 89 91 91 Position Supine (min.) 6.1 5.1 7.0 31.2 7.8 13.0 3.6 48.1 Position Non-supine (min.) 0.0 0.0 0.0 0.0 0.0 0.0 45.0 0.0 LM Index Sleep 59.0 23.7 8.5 3.8 7.7 13.9 2.5 7.5 LM Index NREM 87.9 23.7 8.5 3.8 0.0 0.0 0.0 0.0 LM Index REM 35.6 N/A N/A N/A 9.2 30.9 4.0 18.9 Mean Heart Rate (bpm) 66 64 63 66 70 69 70 68 Min Heart Rate (bpm) 53 55 54 53 59 57 54 58
--- NOTE | 2016-09-07 09:09 | POLYSOMNOGRAPH REPORT ---
TEST DATE: 08/30/2016. REFERRING PERSON: Dr. Jony Raines. ASSISTANT MANAGER: Pankaj Smallwood. Mr. Levin is a 56-year-old male who has snoring, witnessed apneas, unrefreshing sleep and excessive daytime sleepiness. He was referred to the sleep lab to rule out sleep disorder breathing. His [place] Sleepiness Scale Score on the evening of this study is 13. BMI is 34.51. Mr. Levin did in fact qualify for a split night sleep study. He was observed for 133.5 minutes of recorded time. During that time, there were 155 arousals from sleep. Eight of those arousals were nonspecific, 3 were due to periodic limb movements of sleep and 3 were due to snoring and the remainder were due to respiratory events. There were 35 periodic limb movements during observation, 3 of which resulted in arousals. Mean saturation was low at 85% with desaturations to 65% with respiratory events. During the diagnostic portion of this test, this patient had 139 obstructive apneas, 2 central apneas and 10 mixed apneas. Additionally, he had 41 hypopnea. Apnea-hypopnea index was 86.3 consistent with very severe sleep apnea. Therefore, at 12:30 a.m., this patient was started on CPAP therapy. PACs were noted on EKG monitoring. Mr. Levin was titrated on CPAP from a CPAP pressure of 4 to a CPAP pressure of 8 before being switched to bilevel therapy. From pressures of 4 to 8, this patient had almost exclusively either central or mixed apneas with few obstructive hypopneas or obstructive apneas. On BiPAP therapy, back up rate was added to address the central events. Initially he was started on a back up rate of 10 but over the course to night, this was increased to a rate of 14. He was titrated from a level of 8/4 and a back up rate of 10, ultimately to a pressure of 27/18 and a back up rate of 14. On lower pressures, this patient continued to have central events which finally did dissipate with increasing pressures. He was observed on /18 for 48.1 minutes of sleep time. On this pressure obstructive as well as central events improved greatly. His AHI and RDI on this pressure were 2.5 and 3.7 respectively. There were 19 minutes of supine REM sleep noted on this pressure. IMPRESSION AND PLAN: Successful split night sleep study in this patient with very severe sleep apnea and very significant nocturnal hypoxemia. It appears that this patient does well on bilevel therapy, BIPAP ST at 27/18 and a back up rate of 14. His nocturnal hypoxemia as well as apnea seems to resolve on this pressure. A download from his machine should be reviewed in 1 month both to check compliance as well as AHI and further pressure adjustments can occur at that time. ROBERT
== END | disposition home or self-care (01) ==
LOC: C.NEUR 20:00
PROVIDERS: ATTEND Family Medicine
DX: R06.81 Apnea, not elsewhere classified (principal); G47.10 Hypersomnia, unspecified; R06.83 Snoring

== ENCOUNTER 2017-10-25 07:49 | Observation (INO) | payer OTHER ==
[~2017-10-25] VITALS: Ht 177.8 cm; Wt 110.8 kg
[2017-10-25] VITALS (9 sets, daily range): BP systolic 115–146; BP diastolic 57–85; PULSE 55–77; TEMP 36.4–37.6; O2SAT 93–97; Ht 177.8 cm; Wt 110.8 kg
[2017-10-25] MEDS ORDERED: ONDANSETRON INJ 2 MG/ML 2 ML VIAL IV STA (08:07)
[2017-10-25] MEDS ORDERED: SODIUM CHLORIDE 0.9% 1000ML 1,000 ML IV STA (08:07)
[2017-10-25] MEDS ORDERED: MoRPHine SULFATE 10 MG/ML CARP/VIAL IV STA (08:07)
[2017-10-25 08:31] LABS: BASO % 0.3 %; BASO ABS # 0.02 K/uL (0-0.2); EOS % 0.5 %; EOS ABS # 0.04 K/uL (0-0.5); HEMATOCRIT 43.5 % (42-52); HEMOGLOBIN 14.7 g/dL (14.0-18.0); IG# 0.01 K/uL (0.00-0.02); LYMPH ABS # 0.74 K/uL (1.2-3.4); MEAN CELL VOLUME 89.7 fL (80-100); MEAN CORPUSCULAR HEMOGLOBIN 30.3 pg (25-34); MEAN CORPUSCULAR HGB CONC 33.8 g/dl (32-36); MEAN PLATELET VOLUME 9.1 fL (7.4-10.4); MONO % 3.6 %; MONO ABS # 0.27 K/uL (0.11-0.59); NEUT % 85.5 %; NEUT ABS # 6.34 K/uL (1.4-6.5); PLATELET COUNT 200 K/uL (130-400); RED CELL DISTRIBUTION WIDTH CV 12.9 % (11.5-14.5); WHITE BLOOD COUNT 7.42 K/uL (4.8-10.8)
--- NOTE | 2017-10-25 08:36 | DIAGNOSTIC IMAGING REPORT ---
CHEST ONE VIEW PORTABLE HISTORY: 57 years-old Male Chest and epigastric pain acute chest and epigastric abdominal pain COMPARISON: Chest radiograph 08/05/2016 TECHNIQUE: Portable AP view of the chest FINDINGS: Cardiomediastinal and hilar silhouettes are within normal limits. There is no pneumothorax, pleural effusion, focal airspace consolidation or overt pulmonary edema. The bones of the chest appear grossly intact. Degenerative changes are seen within the shoulders and spine. Surgical clips project over the right upper quadrant of the abdomen. IMPRESSION: No acute process. The above report was generated using voice recognition software. It may contain grammatical, syntax or spelling errors. Electronically signed by: Masoud Cortés M.D. 10/25/2017 8:34 AM Dictated Date/Time: 10/25/2017 8:32 AM
[2017-10-25 08:39] LABS: CALCIUM 9.2 mg/dl (8.5-10.1); CREATININE 1.16 mg/dl (0.60-1.40); POTASSIUM 3.9 mmol/L (3.5-5.1)
[2017-10-25 08:43] LABS: TOTAL PROTEIN 7.7 gm/dl (6.4-8.2)
--- NOTE | 2017-10-25 09:44 | DIAGNOSTIC IMAGING REPORT ---
GALLBLADDER-ABD LIMITED HISTORY: 57 years-old Male ABDOMINAL PAIN/GI acute generalized abdominal pain COMPARISON: CT abdomen and pelvis 08/05/2016 TECHNIQUE: Multiple real-time sonographic images of the abdominal right upper quadrant were obtained assessing grayscale appearance and color flow FINDINGS: Pancreas appears mildly heterogeneous, nonspecific. There is increased echogenicity of the hepatic parenchyma without focal lesion or intrahepatic biliary ductal dilation identified. Liver measures up to 22 cm in length. Minimal layering sludge seen within the gallbladder lumen along with shadowing cholelithiasis. Gallstones within the region of the gallbladder neck measuring up to 1.7 cm. Mild gallbladder wall thickening, 4 mm. No pericholecystic fluid collections. No right upper quadrant abdominal tenderness reported. Common bile duct measures the upper limits of normal, 6 mm. Cysts of the right kidney are noted measuring up to 1.9 cm. No hydronephrosis identified. IMPRESSION: 1. Cholelithiasis and minimal gallbladder sludge with mild wall thickening. Correlate clinically to exclude acute cholecystitis. 2. Fatty infiltration of the liver. 3. No biliary ductal dilation. The above report was generated using voice recognition software. It may contain grammatical, syntax or spelling errors. Electronically signed by: Masoud Cortés M.D. 10/25/2017 9:43 AM Dictated Date/Time: 10/25/2017 9:40 AM
[2017-10-25] MEDS ORDERED: ACETAMINOPHEN 325 MG TAB PO PRN (11:00)
[2017-10-25] MEDS ORDERED: ONDANSETRON INJ 2 MG/ML 2 ML VIAL IV PRN ×2 (11:00→15:00)
[2017-10-25] MEDS ORDERED: HYDROmorphone INJ 0.5 MG/0.5 ML SYR ONE (11:39)
[2017-10-25] MEDS ORDERED: PIPERACILL/TAZOBAC IV 3.375 GM in NSS 100 ML IV ONE (12:00)
[2017-10-25] MEDS ORDERED: PIPERACILL/TAZOBAC CONSULT ACTIVE PRN (12:00)
--- NOTE | 2017-10-25 12:26 | Surgery Consultation ---
Consultation Date of Consultation: Oct 25, 2017. Attending Physician: Zeinab Cabrera MD History of Present Illness pt is a 57b year old male who presents with one day history RUQ and epigastric pain, with nausea and vomiting, pt denies chest pain, no fever, pt developed abdominal pain after ate fatty food, Past Medical/Surgical History Medical Problems: (1) Abdominal pain Status: Acute (2) Diffuse abdominal pain Status: Acute (3) Hypertension Status: Acute (4) Sleep apnea Status: Acute Family History No pertinent family history Social History Smoking Status: Never Smoker Smokeless Tobacco Use: No Alcohol Use: occasionally Drug Use: none Occupation Status: employed Allergies Coded Allergies: No Known Allergies (Verified , 10/25/17) Uncoded Allergies: ANTIBIOTIC ? (Allergy, Unknown, redness,fever,shakes, 02/10/13) N (Allergy, Unknown, 08/28/02) Home Medications No Active Prescriptions or Reported Meds Current Inpatient Medications Current Inpatient Medications Medications (Trade) Dose Ordered Sig/Cj Route Start Time Stop Time Status Last Admin Dose Admin Potassium Chloride/Dextrose/ Sod Cl 1,000 ml @ 100 mls/hr Q10H IV 10/25/17 12:00 11/24/17 10:45 Ondansetron HCl (Zofran Inj) 4 mg Q4H PRN IV 10/25/17 11:00 11/24/17 10:59 Acetaminophen (Tylenol Tab) 650 mg Q6H PRN PO 10/25/17 11:00 11/24/17 10:59 Oxycodone/ Acetaminophen (Percocet 5-325mg Tab) 1 tab Q4H PRN PO 10/25/17 11:00 11/08/17 10:59 Hydromorphone HCl (Dilaudid Inj) 0.6 mg Q3H PRN IV 10/25/17 11:00 11/08/17 10:59 Piperacillin Sod/ Tazobactam Sod 3.375 gm/Sodium Chloride 115 ml @ 230 mls/hr NOW ONCE IV 10/25/17 12:00 10/25/17 12:29 Piperacillin Sod/ Tazobactam Sod 3.375 gm/Sodium Chloride 115 ml @ 28.75 mls/ hr Q8H IV 10/25/17 18:00 10/26/17 17:59 Miscellaneous Information (Consult) 1 ea UD PRN N/A 10/25/17 12:00 11/24/17 11:59 Review of Systems Constitutional: No fever, No chills, No sweats, No weight loss, No weakness, No fatigue, No problem reported Eyes: No worsening of vision, No eye pain, No redness, No discharge, No diplopia, No problem reported ENT: No hearing loss, No unusual epistaxis, No nasal symptoms, No sore throat, No tinnitus, No dental problems, No trouble swallowing, No problem reported Respiratory: No cough, No sputum, No wheezing, No shortness of breath, No dyspnea on exertion, No dyspnea at rest, No hemoptysis, No problem reported Cardiovascular: No chest pain, No orthopnea, No PND, No edema, No claudication , No palpitations, No problem reported Abdomen: + pain, + nausea, + vomiting Musculoskeletal: No joint pain, No muscle pain, No swelling, No calf pain, No problem reported Genitourinary - Male: No hematuria, No dysuria, No urinary frequency, No urinary urgency, No urinary hesitancy, No urinary retention, No urinary incontinence, No penile discharge, No lesions, No impotence, No problem reported Neurologic: No memory loss, No paralysis, No weakness, No numbness/tingling, No vertigo, No balance problems, No problem reported Psychiatric: No depression symptoms, No anhedonism, No anxiety, No insomnia, No substance abuse, No problem reported Endocrine: No fatigue, No excessive thirst, No excessive urination, No problem reported Hematologic / Lymphatic: No abnormal bleeding/bruising, No clotting problems, No swollen lymph nodes, No night sweats, No problem reported Integumentary: No rash, No itch, No new/changing skin lesions, No color change , No bleeding, No problem reported Allergic / Immunologic: No environmental allergies, No seasonal allergies, No pet sensitivities, No food allergies, No hives, No frequent infections, No poor healing, No prolonged convalescence, No problem reported Physical Exam Date Time Temp Pulse Resp B/P (MAP) Pulse Ox O2 Delivery O2 Flow Rate FiO2 10/25/17 11:21 82 20 151/97 96 10/25/17 11:01 97 Room Air 10/25/17 10:23 48 20 128/76 97 Room Air 10/25/17 08:20 56 20 138/77 100 Room Air 10/25/17 08:05 54 10/25/17 08:04 Room Air 10/25/17 07:50 36.7 62 18 149/94 100 Room Air General Appearance: WD/WN, + mild distress Head: normocephalic Eyes: normal inspection ENT: normal ENT inspection Neck: supple, no JVD Respiratory/Chest: chest non-tender, lungs clear, normal breath sounds Cardiovascular: regular rate, rhythm, no edema, no gallop, no JVD, no murmur Abdomen/GI: non tender, soft, no organomegaly, no pulsatile mass, normal rectal exam, + tenderness (at RUQ and epigastric area, no rebound pain, ) Extremities/Musculoskelatal: normal inspection, no calf tenderness, normal capillary refill Neurologic/Psych: no motor/sensory deficits, alert, normal mood/affect Skin: normal color, warm/dry, no rash Laboratory Results Last 24 Hours Test 10/25/17 08:00 10/25/17 08:06 White Blood Count 7.42 K/uL Red Blood Count 4.85 M/uL Hemoglobin 14.7 g/dL Hematocrit 43.5 % Mean Corpuscular Volume 89.7 fL Mean Corpuscular Hemoglobin 30.3 pg Mean Corpuscular Hemoglobin Concent 33.8 g/dl Platelet Count 200 K/uL Mean Platelet Volume 9.1 fL Neutrophils (%) (Auto) 85.5 % Lymphocytes (%) (Auto) 10.0 % Monocytes (%) (Auto) 3.6 % Eosinophils (%) (Auto) 0.5 % Basophils (%) (Auto) 0.3 % Neutrophils # (Auto) 6.34 K/uL Lymphocytes # (Auto) 0.74 K/uL Monocytes # (Auto) 0.27 K/uL Eosinophils # (Auto) 0.04 K/uL Basophils # (Auto) 0.02 K/uL RDW Standard Deviation 42.0 fL RDW Coefficient of Variation 12.9 % Immature Granulocyte % (Auto) 0.1 % Immature Granulocyte # (Auto) 0.01 K/uL Sodium Level 138 mmol/L Potassium Level 3.9 mmol/L Chloride Level 104 mmol/L Carbon Dioxide Level 29 mmol/L Anion Gap 5.0 mmol/L Blood Urea Nitrogen 15 mg/dl Creatinine 1.16 mg/dl Est Creatinine Clear Calc Drug Dose 87.6 ml/min Estimated GFR () 80.6 Estimated GFR (Non- 69.5 BUN/Creatinine Ratio 12.8 Random Glucose 141 mg/dl Calcium Level 9.2 mg/dl Total Bilirubin 0.5 mg/dl Direct Bilirubin 0.1 mg/dl Aspartate Amino Transf (AST/SGOT) 34 U/L Alanine Aminotransferase (ALT/SGPT) 43 U/L Alkaline Phosphatase 105 U/L Total Protein 7.7 gm/dl Albumin 4.0 gm/dl Lipase 541 U/L Bedside Troponin I < 0.030 ng/ml Assessment & Plan U/S -FINDINGS: Pancreas appears mildly heterogeneous, nonspecific. There is increased echogenicity of the hepatic parenchyma without focal lesion or intrahepatic biliary ductal dilation identified. Liver measures up to 22 cm in length. Minimal layering sludge seen within the gallbladder lumen along with shadowing cholelithiasis. Gallstones within the region of the gallbladder neck measuring up to 1.7 cm. Mild gallbladder wall thickening, 4 mm. No pericholecystic fluid collections. No right upper quadrant abdominal tenderness reported. Common bile duct measures the upper limits of normal, 6 mm. Cysts of the right kidney are noted measuring up to 1.9 cm. No hydronephrosis identified. IMPRESSION: 1. Cholelithiasis and minimal gallbladder sludge with mild wall thickening. Correlate clinically to exclude acute cholecystitis. 2. Fatty infiltration of the liver. 3. No biliary ductal dilation. Assessment: pt is a 57 year old male who presents to er with one day history RUQ pain after ate fatty food, U/S study- acute cholecystitis with gallstone, IMP: acute cholecystitis, cholelithiasis Plan, admit pt to hospital IV fluid, iv antibiotic, control pain, I recommend to do laparoscopic cholecystectomy, D/W benefits, risks and alternatives of the surgery, but pt dose not want to cholecystectomy today, pt wants to do thinking about the surgery, will F/U
[2017-10-25] MEDS: D5W AND 1/2NSS + 20MEQ KCL 1,000 ML IV SCH (12:33)
[2017-10-25] MEDS ORDERED: IV FLUIDS COMPLETED PRN (12:45)
[2017-10-25] MEDS ORDERED: PIPERACILL/TAZOBAC IV 3.375 GM in DEXTROSE 5% 100ML 100 ML IV SCH (14:00)
--- NOTE | 2017-10-25 14:46 | Surgery Progress Note ---
Surgery Progress Note Date of Service Oct 25, 2017. Subjective pt is still have RUQ pain, pt requests to do cholecystectomy, Objective Vital Signs: Date Time Temp Pulse Resp B/P (MAP) Pulse Ox O2 Delivery O2 Flow Rate FiO2 10/25/17 13:30 Room Air 10/25/17 11:45 Room Air 10/25/17 11:45 37.0 60 16 133/85 (101) 93 Room Air 10/25/17 11:21 82 20 151/97 96 10/25/17 11:01 97 Room Air 10/25/17 10:23 48 20 128/76 97 Room Air 10/25/17 08:20 56 20 138/77 100 Room Air 10/25/17 08:05 54 10/25/17 08:04 Room Air 10/25/17 07:50 36.7 62 18 149/94 100 Room Air General Appearance: WD/WN, + mild distress Head: normocephalic Neck: supple, no JVD Respiratory/Chest: chest non-tender, lungs clear Cardiovascular: regular rate, rhythm, no edema, no gallop, no JVD, no murmur Abdomen: normal bowel sounds, non distended, no organomegaly, + tenderness (At RUQ) Extremities: normal range of motion, non-tender, normal inspection Laboratory Results: Results Past 24 Hours Test 10/25/17 08:00 10/25/17 08:06 Range/Units White Blood Count 7.42 4.8-10.8 K/uL Red Blood Count 4.85 4.7-6.1 M/uL Hemoglobin 14.7 14.0-18.0 g/dL Hematocrit 43.5 42-52 % Mean Corpuscular Volume 89.7 80-100 fL Mean Corpuscular Hemoglobin 30.3 25-34 pg Mean Corpuscular Hemoglobin Concent 33.8 32-36 g/dl Platelet Count 200 130-400 K/uL Mean Platelet Volume 9.1 7.4-10.4 fL Neutrophils (%) (Auto) 85.5 % Lymphocytes (%) (Auto) 10.0 % Monocytes (%) (Auto) 3.6 % Eosinophils (%) (Auto) 0.5 % Basophils (%) (Auto) 0.3 % Neutrophils # (Auto) 6.34 1.4-6.5 K/uL Lymphocytes # (Auto) 0.74 1.2-3.4 K/uL Monocytes # (Auto) 0.27 0.11-0.59 K/uL Eosinophils # (Auto) 0.04 0-0.5 K/uL Basophils # (Auto) 0.02 0-0.2 K/uL RDW Standard Deviation 42.0 36.4-46.3 fL RDW Coefficient of Variation 12.9 11.5-14.5 % Immature Granulocyte % (Auto) 0.1 % Immature Granulocyte # (Auto) 0.01 0.00-0.02 K/uL Sodium Level 138 136-145 mmol/L Potassium Level 3.9 3.5-5.1 mmol/L Chloride Level 104 98-107 mmol/L Carbon Dioxide Level 29 21-32 mmol/L Anion Gap 5.0 3-11 mmol/L Blood Urea Nitrogen 15 7-18 mg/dl Creatinine 1.16 0.60-1.40 mg/dl Est Creatinine Clear Calc Drug Dose 87.6 ml/min Estimated GFR () 80.6 Estimated GFR (Non- 69.5 BUN/Creatinine Ratio 12.8 10-20 Random Glucose 141 70-99 mg/dl Calcium Level 9.2 8.5-10.1 mg/dl Total Bilirubin 0.5 0.2-1 mg/dl Direct Bilirubin 0.1 0-0.2 mg/dl Aspartate Amino Transf (AST/SGOT) 34 15-37 U/L Alanine Aminotransferase (ALT/SGPT) 43 12-78 U/L Alkaline Phosphatase 105 45-117 U/L Total Protein 7.7 6.4-8.2 gm/dl Albumin 4.0 3.4-5.0 gm/dl Lipase 541 73-393 U/L Hepatitis C Antibody Screen NEG NEG Bedside Troponin I < 0.030 0-0.045 ng/ml Assessment & Plan pt requests to do cholecystectomy, pt will have laparoscopic cholecystectomy, possible open or cholangiogram, D/W benefits, risks and alternatives of the procedure, the risks - infection, bleeding, injury CBD, biliary leak, may need ERCP, DVT, OR, , pt understood , he agrees with the surgery, I answered all questions,
[2017-10-25] MEDS ORDERED: ATROPINE SULFATE 0.1 MG/ML 5ML SYR IV PRN (15:00)
[2017-10-25] MEDS ORDERED: FENTANYL CITRATE INJ 50 MCG/1 ML 2 ML VIAL IV PRN (15:00)
[2017-10-25] MEDS ORDERED: EpHEDrine SULFATE INJ 50 MG/ML AMP IV PRN (15:00)
[2017-10-25] MEDS ORDERED: BACITRACIN OINT 15 GM TUBE ONE (15:07)
[2017-10-25] MEDS ORDERED: LIDOCAINE HCL 1% 20 ML VIAL ONE (15:07)
[2017-10-25] MEDS ORDERED: BUPIVACAINE 0.5 % 5 MG/1 ML MPF 30ML VIAL ONE (15:07)
[2017-10-25] MEDS ORDERED: FENTANYL CITRATE INJ 50 MCG/1 ML 2 ML VIAL ONE ×2 (15:23→16:18)
[2017-10-25] MEDS ORDERED: MIDAZOLAM HCL 1 MG/ML 2ML VIAL ONE (15:32)
--- NOTE | 2017-10-25 15:39 | History & Physical Bridge Note ---
H&P Re-Evaluation Bridge Note: I have examined the patient, reviewed the History & Physical and in the interval since the performance of the History & Physical I have noted the following changes of clinical significance: No changes noted
[2017-10-25] MEDS ORDERED: GLYCOPYRROLATE INJ 0.2 MG/ML VIAL ONE (16:12)
[2017-10-25] MEDS ORDERED: PROPOFOL IV EMULSION 10 MG/ML 20 ML VIAL IV ONE (16:12)
[2017-10-25] MEDS ORDERED: LABETALOL HCL IV 5 MG/ML 20ML IV ONE (16:12)
[2017-10-25] MEDS ORDERED: ROCURONIUM BROMIDE 10 MG/ML 5 ML VIAL IV ONE (16:12)
[2017-10-25] MEDS ORDERED: NEOSTIGMINE METHYLSULFATE 5 MG/5 ML SYR ONE (16:12)
[2017-10-25] MEDS ORDERED: DEXAMETHASONE SOD INJ 4 MG/ML VIAL ONE (16:12)
[2017-10-25] MEDS ORDERED: ONDANSETRON INJ 2 MG/ML 2 ML VIAL ONE (16:12)
--- NOTE | 2017-10-25 17:16 | EMERGENCY ROOM VISIT NOTE ---
ED Visit Note First contact with patient: 07:57 Chief Complaint: Abdominal pain. History of Present Illness: Mr. Levin is a 57 year-old white male who ambulates into the ED complaining of epigastric abdominal pain. Historically patient reports reports he was seen 2 previous times for similar symptoms and no cause was identified. Patient reports a acute onset of epigastric abdominal pain that started approximately 8 hours ago. Since that time the pain has been constant. He describes his discomfort as as being stab with a hot airborne operations superintendent the epigastrium. He rates his discomfort 9/10. The pain is radiating into his back. The pain worsens with his dry heaves. He has not identified any alleviating factors related to the pain. He has not taken any medications for his discomfort prior to arrival at the hospital. Associated with his discomfort as previously noted he reports he has been having multiple episodes of dry heaves but has not had any vomiting and he has been continuously nauseated. Patient denies fevers, chills, sweats, skin eruptions, skin color changes, upper respiratory tract symptoms, shortness of breath, chest pain, diarrhea, constipation, rectal bleeding, black/tarry stools, urinary symptoms, hematuria, flank pain. Review of Systems: As noted above in history of present illness. All body systems were reviewed and found to be negative as noted above. Past Medical History: As previously noted, hypertension, sleep apnea. Current Medications: Patient denies. Allergies to Medications: Patient reports he did have an antibiotic in the past and reports that he had redness, fevers and shakes but does not remember the antibiotics name.. Social History: Patient reports he is currently employed; he feels safe in his home environment; he denies tobacco use and admits to social alcohol use. Physical Examination: Vital Signs: Date Time Temp Pulse Resp B/P (MAP) Pulse Ox O2 Delivery O2 Flow Rate FiO2 10/25/17 10:23 48 20 128/76 97 Room Air 10/25/17 08:20 56 20 138/77 100 Room Air 10/25/17 08:04 Room Air 10/25/17 07:50 36.7 62 18 149/94 100 Room Air GENERAL: 57-year-old male in moderate distress due to pain, nontoxic-appearing, afebrile and hemodynamically stable. NEUROLOGICAL: Awake, alert and oriented to person, place and time. Answering questions appropriately and following commands. Normal gait. Good hand eye coordination. SKIN: Warm, dry and pink. No soft tissue eruptions or trauma noted. HEENT: Atraumatic and normocephalic. PERRL. Sclera white and conjunctiva pink. Oral cavity moist and pink. Pharynx is nonerythematous or edematous. Speech normal. No lymphadenopathy. Trachea midline. No jugular venous distention. BACK: No tenderness over the bony spine. No CVA tenderness. THORAX: Lungs sounds are clear to auscultation and equal bilaterally with symmetrical chest wall. No wheezing, rales or rhonchi. No crepitus, tenderness , subcutaneous air or deformities noted. HEART: Regular rate and rhythm. No gallops, rubs or murmurs are appreciated. ABDOMEN: Obese and soft with moderate tenderness in the right upper quadrant and the epigastric area. Positive Young sign. Decreased bowel sounds in all quadrants. EXTREMITIES: Moves all extremities well on command and with purpose. All distal neurovascular statuses are intact and equal bilaterally. ED Course: Patient is assessed as noted above. Patient's medication list was reviewed. Laboratory Testing: Test 10/25/17 08:00 10/25/17 08:06 Range/Units White Blood Count 7.42 4.8-10.8 K/uL Red Blood Count 4.85 4.7-6.1 M/uL Hemoglobin 14.7 14.0-18.0 g/dL Hematocrit 43.5 42-52 % Mean Corpuscular Volume 89.7 80-100 fL Mean Corpuscular Hemoglobin 30.3 25-34 pg Mean Corpuscular Hemoglobin Concent 33.8 32-36 g/dl Platelet Count 200 130-400 K/uL Mean Platelet Volume 9.1 7.4-10.4 fL Neutrophils (%) (Auto) 85.5 % Lymphocytes (%) (Auto) 10.0 % Monocytes (%) (Auto) 3.6 % Eosinophils (%) (Auto) 0.5 % Basophils (%) (Auto) 0.3 % Neutrophils # (Auto) 6.34 1.4-6.5 K/uL Lymphocytes # (Auto) 0.74 1.2-3.4 K/uL Monocytes # (Auto) 0.27 0.11-0.59 K/uL Eosinophils # (Auto) 0.04 0-0.5 K/uL Basophils # (Auto) 0.02 0-0.2 K/uL RDW Standard Deviation 42.0 36.4-46.3 fL RDW Coefficient of Variation 12.9 11.5-14.5 % Immature Granulocyte % (Auto) 0.1 % Immature Granulocyte # (Auto) 0.01 0.00-0.02 K/uL Sodium Level 138 136-145 mmol/L Potassium Level 3.9 3.5-5.1 mmol/L Chloride Level 104 98-107 mmol/L Carbon Dioxide Level 29 21-32 mmol/L Anion Gap 5.0 3-11 mmol/L Blood Urea Nitrogen 15 7-18 mg/dl Creatinine 1.16 0.60-1.40 mg/dl Est Creatinine Clear Calc Drug Dose 87.6 ml/min Estimated GFR () 80.6 Estimated GFR (Non- 69.5 BUN/Creatinine Ratio 12.8 10-20 Random Glucose 141 70-99 mg/dl Calcium Level 9.2 8.5-10.1 mg/dl Total Bilirubin 0.5 0.2-1 mg/dl Direct Bilirubin 0.1 0-0.2 mg/dl Aspartate Amino Transf (AST/SGOT) 34 15-37 U/L Alanine Aminotransferase (ALT/SGPT) 43 12-78 U/L Alkaline Phosphatase 105 45-117 U/L Total Protein 7.7 6.4-8.2 gm/dl Albumin 4.0 3.4-5.0 gm/dl Lipase 541 73-393 U/L Hepatitis C Antibody Screen NEG NEG Bedside Troponin I < 0.030 0-0.045 ng/ml Chest X-Ray: Was read by myself and the radiologist showing no acute infiltrates , effusions or pneumothorax. Normal heart silhouette and bony anatomy. No free air under the diaphragm. EKG: Was read by myself and reviewed with Dr. Zhao; shows normal sinus rhythm with a ventricular rate of 61 bpm. Normal axis. No ischemic changes. Compared to previous from July 2016 and no acute changes were noted. Right Upper Quadrant Ultrasound: Was reviewed by myself and read by the radiologist showing cholelithiasis with minimal gallbladder sludge and mild wall thickening. Clinically correlate to exclude acute cholecystitis. Fatty infiltration of the liver and no biliary duct dilatation. Patient was hydrated with normal saline and received 6 mg of morphine IV pain and 4 mg of Zofran IV for his symptoms. When I informed the patient I felt that this possibly could be acute cholecystitis and he may need surgery he reports he did not want any surgery. When I explained the seriousness of the situation he reports he would be willing to be examined by the surgeon and listen to their recommendations. Patient's case was reviewed with Dr. Zhao; we agreed on diagnostic approach , treatment, disposition and plan. Patient's case was consulted with Dr. Cabrera, [facility] surgery; he came to assess the patient. Please see Dr. Cabrera's notes and orders for final disposition and plan. Clinical Impression: Acute epigastric abdominal pain. Cholelithiasis with sludge. Probable acute cholecystitis. Decision-Making: Initially my differential diagnosis I considered acute cholecystitis, esophagitis, GERD, hepatitis, cholelithiasis and other causes. Disposition and Plan: Patient to be brought in the hospital for observation/ admission by Dr. Cabrera; please see his notes and orders for final disposition and plan.
--- NOTE | 2017-10-25 17:22 | [facility] Post Operative Brief Note ---
Immediate Operative Summary Operative Date Oct 25, 2017. Pre-Operative Diagnosis Acute cholecystitis, cholelithiasis Post-Operative Diagnosis same Procedure(s) Performed laparoscopic cholecystectomy Surgeon Dr. Cabrera Ice Grinder Surgeon(s) PERCY Rae Estimated Blood Loss 30ml Findings Consistent with Post-Op Diagnosis significant inflammation of gallbladder, wall edema, thickening Fluids (cc crystalloids) 1000ml Specimens gallbladder Drains None Anesthesia Type General Complication(s) none Disposition Accompanied Pt To Recover: yes Disposition: Recovery Room / PACU
[2017-10-25] MEDS: HYDROmorphone INJ 2 MG/ML SYR/VIAL IV PRN ×2 (18:56→23:17)
--- NOTE | 2017-10-25 19:18 | Anesthesiology Progress Note ---
Anesthesia Post Op Note Date & Time Oct 25, 2017 at 19:17 Vital Signs Vital Signs Past 12 Hours Date Time Temp Pulse Resp B/P (MAP) Pulse Ox O2 Delivery O2 Flow Rate FiO2 10/25/17 18:45 37.6 57 15 146/82 (103) 93 Nasal Cannula 2.0 10/25/17 18:45 93 Nasal Cannula 2.0 10/25/17 18:45 93 Nasal Cannula 2.0 10/25/17 18:32 56 18 10/25/17 18:32 55 18 98 10/25/17 18:31 122/80 10/25/17 18:27 58 17 97 10/25/17 18:27 57 17 10/25/17 18:26 114/69 10/25/17 18:22 57 15 10/25/17 18:22 56 15 96 10/25/17 18:21 132/80 10/25/17 18:17 57 12 10/25/17 18:17 57 12 91 10/25/17 18:16 139/86 10/25/17 18:13 69 21 10/25/17 18:13 69 21 87 10/25/17 18:12 37.6 56 20 136/86 (94) 93 Nasal Cannula 2 10/25/17 18:11 136/76 10/25/17 18:08 75 24 10/25/17 18:08 81 24 85 10/25/17 18:07 70 22 97 10/25/17 18:07 68 22 10/25/17 18:06 140/95 10/25/17 18:04 60 14 10/25/17 18:04 60 14 96 10/25/17 18:01 153/84 10/25/17 17:59 82 17 99 10/25/17 17:59 81 17 10/25/17 17:56 136/82 10/25/17 17:54 76 19 10/25/17 17:54 36.5 70 16 137/85 (105) 100 Oxymask 10 10/25/17 17:54 76 19 137/85 100 10/25/17 14:51 36.9 60 18 132/79 (96) 93 Room Air 10/25/17 13:30 Room Air 10/25/17 11:45 Room Air 10/25/17 11:45 37.0 60 16 133/85 (101) 93 Room Air 10/25/17 11:21 82 20 151/97 96 10/25/17 11:01 97 Room Air 10/25/17 10:23 48 20 128/76 97 Room Air 10/25/17 08:20 56 20 138/77 100 Room Air 10/25/17 08:05 54 10/25/17 08:04 Room Air 10/25/17 07:50 36.7 62 18 149/94 100 Room Air Notes Mental Status: alert / awake / arousable, participated in evaluation Pt Amnestic to Procedure: Yes Nausea / Vomiting: adequately controlled Pain: adequately controlled Airway Patency, RR, SpO2: stable & adequate BP & HR: stable & adequate Hydration State: stable & adequate Anesthetic Complications: no major complications apparent
[2017-10-25] MEDS: PIPERACILL/TAZOBAC IV 3.375 GM in NSS 100ML IV SCH (19:33)
[2017-10-25] MEDS: OXYCODONE/ACETAMINOPHEN 5-325 TAB PO PRN (21:52)
--- NOTE | 2017-10-25 22:12 | OPERATIVE REPORT ---
DATE OF OPERATION: 10/25/2017 PREOPERATIVE DIAGNOSIS: Acute cholecystitis, cholelithiasis. POSTOPERATIVE DIAGNOSIS: Same. PROCEDURE: Laparoscopic cholecystectomy. SURGEON: Zeinab Cabrera MD CARD DEALER: Isabelle Patino PA-C ANESTHESIA: General. ESTIMATED BLOOD LOSS: About 30 mL. FINDINGS: Significant inflammation on the gallbladder, acute cholecystitis, gallbladder wall edema, thickening with gallstones. COMPLICATIONS: None. INDICATION FOR THE PROCEDURE: This is a 57-year-old gentleman who presented to the ED with 1 day history of right upper quadrant pain. The patient had ultrasound diagnosis of acute cholecystitis with cholelithiasis. Patient will be required to do laparoscopic cholecystectomy, possible open, possible cholangiogram. I did talk to patient about benefits, risks, and alternatives to procedure. I indicated the risks may include, but not limited, such as bleeding, infection, injury to common bile duct, injury to bowel, may need ERCP, DVT, myocardial infarction, stroke, even . Patient understands. He signed informed consent and I answered all questions. DETAILS OF PROCEDURE: We brought the patient to the OR, put the patient in the supine position. Patient received SCDs on bilateral legs to prevent DVT. Also, patient received 2 grams Ancef IV for prophylactic antibiotic. Patient received general anesthesia without difficulty. The abdomen was properly draped in routine sterile fashion. After time-out, I made a small incision just above umbilical, opened fascia and opened peritoneum under direct vision. I put a Emani trocar in, connected to CO2 to create pneumoperitoneum. Flow rate at 6 liter per minute. Pressure not more than 14 mmHg. Once we got a nice pneumoperitoneum, I put the camera in and looked around the abdomen. Showed no more finding on the stomach, small bowel, large bowel, liver; however, the gallbladder showed significant inflammation, gallbladder wall edema, wall thickening confirming acute cholecystitis. Then, we put another 3.5 mm trocar on the right upper quadrant. Once all trocars in, we put a grasper and held the base of the gallbladder, put direction to the diaphragm, and put another grasper in to hold the pouch of the gallbladder, and put the latter to expose the triangle of Calot. The cystic duct was identified and mobilized. I put two 10-mm metal clips on the proximal cystic duct and one on the distal cystic duct. I used scissor transection to the cystic duct and also we changed the trocar from 5 to 11 on the epigastric area in order to use a 10 mm metal clip. Then the cystic duct was identified and mobilized. I put two 10 mm metal clips on the proximal cystic artery, one on the distal cystic artery. Then, I used scissor transection on the cystic artery. Rechecked and no active bleeding, no bile leak. And then we used a Bovie to take down gallbladder from liver bed. Rechecked, no active bleeding, no bile leak. Then we removed gallbladder through the catch bag, then we reinserted Emani trocar in, connected to CO2 to create pneumoperitoneum. Again looked around the abdomen, no bile leak with no active bleeding from liver bed. Then we removed all trocar under direct vision. No active bleeding from trocar sites. Pneumoperitoneum was released. Then I closed the epigastric 10 mm trocar site incision by using #1 Vicryl [id number] x2, closed subcutaneous layer by using 2-0 Vicryl, closed skin by using 4-0 Vicryl, closed the umbilical fascial layer by using #1 Vicryl [id number] x2, closed the subcutaneous layer by using 2-0 Vicryl interrupted, and closed skin by using 4-0 Vicryl. Another two 5-mm trocar sites were closed only by using 4-0 Vicryl. Then we put the dressing on. The patient tolerated the procedure well. All the instrument, needle, and sponge counts were correct x2 at the end the case. The specimen was sent to pathology. Patient transferred to recovery room in stable condition. I attest to the content of the Intraoperative Record and any orders documented therein. Any exception s are noted below.
[2017-10-26] MEDS: PIPERACILL/TAZOBAC IV 3.375 GM in NSS 100ML IV SCH ×2 (01:27→09:15)
[2017-10-26] MEDS: D5W AND 1/2NSS + 20MEQ KCL 1,000 ML IV SCH ×2 (01:37→11:30)
[2017-10-26 03:43] VITALS: BP 123/69; PULSE 65; TEMP 36.7; O2SAT 96
[2017-10-26] MEDS ORDERED: CEFAZOLIN 2000MG IV PUSH 15 ML IV SCH (06:00)
[2017-10-26] MEDS ORDERED: CEFAZOLIN SOD 2000MG/15 ML IV PUSH IV ONE (06:00)
[2017-10-26 06:58] LABS: HEMATOCRIT 40.6 % (42-52); HEMOGLOBIN 13.3 g/dL (14.0-18.0); IG# 0.03 K/uL (0.00-0.02); LYMPH % 8.7 %; MEAN CELL VOLUME 90.6 fL (80-100); MEAN CORPUSCULAR HEMOGLOBIN 29.7 pg (25-34); MEAN CORPUSCULAR HGB CONC 32.8 g/dl (32-36); MEAN PLATELET VOLUME 9.1 fL (7.4-10.4); MONO % 4.4 %; MONO ABS # 0.55 K/uL (0.11-0.59); NEUT % 86.7 %; NEUT ABS # 10.92 K/uL (1.4-6.5); PLATELET COUNT 170 K/uL (130-400); RED CELL DISTRIBUTION WIDTH CV 12.8 % (11.5-14.5); RED CELL DISTRIBUTION WIDTH SD 42.7 fL (36.4-46.3)
[2017-10-26 07:30] LABS: ALBUMIN 3.3 gm/dl (3.4-5.0); CALCIUM 8.1 mg/dl (8.5-10.1); CREATININE 1.25 mg/dl (0.60-1.40); POTASSIUM 4.4 mmol/L (3.5-5.1); TOTAL PROTEIN 6.8 gm/dl (6.4-8.2)
[2017-10-26 07:31] VITALS: BP 108/67; PULSE 71; TEMP 36.9; O2SAT 95
[2017-10-26] MEDS ORDERED: OXYC-57 PO (08:42)
[2017-10-26 08:45] VITALS: O2SAT 95
--- NOTE | 2017-10-26 08:46 | Discharge Instructions ---
Discharge Instructions Date of Service Oct 26, 2017. Admission Reason for Admission: Acute Cholecystitis Due To Biliary Caculus Discharge Discharge Diagnosis / Problem: same Discharge Goals Goal(s): Decrease discomfort, Improve function Activity Recommendations Activity Limitations: per Instructions/Follow-up section No heavy lifting over 20 pounds for 4 weeks No strenuous activity until cleared by surgeon No submerging incisions underwater for 2 weeks (no bathing, swimming, or hot tubs) No driving while taking narcotic pain medication or until you are pain free . Instructions / Follow-Up Instructions / Follow-Up You may shower in 4 days, sponge bath and wash hair in meantime. Keep dressings on for 4 days and try to keep clean and dry After 4 days you may shower and remove outer dressings. Leave steri strips on incisions for 7 days and then remove, they may fall off on their own that is okay. Walking and light activity is encouraged multiple times daily. You will be given narcotic pain medication as needed for moderate to severe pain. This medication may make you drowsy and can cause constipation. To combat constipation, drink plenty of water daily, may take OTC stool softener such as Colace or Dulcolax, gentle laxative, or prune juice if needed. You may take extra strength Ibuprofen/Tylenol as needed for mild pain. Follow-up in surgical office in 2 weeks, please call office at [phone] to make an appointment. Current Hospital Diet Patient's current hospital diet: Clear Liquid Diet Discharge Diet Recommended Diet: Regular Diet Procedures Procedures Performed: laparoscopic cholecystectomy Pending Studies Studies pending at discharge: yes List of pending studies: gallbladder pathology , will be reviewed at follow up visit Medical Emergencies . Who to Call and When: Medical Emergencies: If at any time you feel your situation is an emergency, please call 911 immediately. . Non-Emergent Contact Non-Emergency issues call your: Primary Care Provider, Surgeon Call Non-Emergent contact if: you have a fever, temperature is above 101, your pain is not controlled, your pain is worsening, your pain is unusual for you, wound has increased drainage, wound has increased redness, wound has increased pain . "Provider Documentation" section prepared by Isabelle Patino. . [place] Drug Monitoring Program Search Results: patient reviewed within database, no issues identified
[2017-10-26] MEDS: OXYCODONE/ACETAMINOPHEN 5-325 TAB PO PRN (09:18)
[2017-10-26 10:49] VITALS: BP 108/67; PULSE 71; TEMP 36.9; O2SAT 95
--- NOTE | 2017-10-26 12:06 | Surgery Progress Note ---
Surgery Progress Note Date of Service Oct 26, 2017. Subjective Post OP Day: 1 (s/p lap donovan ) + feeling well, + flatus, + pain controlled, + diet (clear liquids), No complaints, No nausea, No vomiting Objective Vital Signs: Date Time Temp Pulse Resp B/P (MAP) Pulse Ox O2 Delivery O2 Flow Rate FiO2 10/26/17 07:31 36.9 71 18 108/67 (81) 95 Room Air 10/26/17 03:43 36.7 65 16 123/69 (87) 96 Room Air 10/25/17 23:12 Room Air 10/25/17 22:50 36.4 77 18 115/68 (84) 96 Room Air 10/25/17 21:45 36.5 59 18 118/69 (85) 95 Room Air 10/25/17 20:44 36.4 62 15 121/70 (87) 94 Room Air 10/25/17 19:48 36.8 64 20 121/63 (82) 94 Room Air 10/25/17 19:15 36.9 55 20 133/57 (82) 95 Nasal Cannula 3.0 10/25/17 18:45 37.6 57 15 146/82 (103) 93 Nasal Cannula 2.0 10/25/17 18:45 93 Nasal Cannula 2.0 10/25/17 18:45 93 Nasal Cannula 2.0 10/25/17 18:32 56 18 10/25/17 18:32 55 18 98 10/25/17 18:31 122/80 10/25/17 18:27 58 17 97 10/25/17 18:27 57 17 10/25/17 18:26 114/69 10/25/17 18:22 57 15 10/25/17 18:22 56 15 96 10/25/17 18:21 132/80 10/25/17 18:17 57 12 10/25/17 18:17 57 12 91 10/25/17 18:16 139/86 10/25/17 18:13 69 21 10/25/17 18:13 69 21 87 10/25/17 18:12 37.6 56 20 136/86 (94) 93 Nasal Cannula 2 10/25/17 18:11 136/76 10/25/17 18:08 75 24 10/25/17 18:08 81 24 85 10/25/17 18:07 70 22 97 10/25/17 18:07 68 22 10/25/17 18:06 140/95 10/25/17 18:04 60 14 10/25/17 18:04 60 14 96 10/25/17 18:01 153/84 10/25/17 17:59 82 17 99 10/25/17 17:59 81 17 10/25/17 17:56 136/82 10/25/17 17:54 76 19 10/25/17 17:54 36.5 70 16 137/85 (105) 100 Oxymask 10 10/25/17 17:54 76 19 137/85 100 10/25/17 14:51 36.9 60 18 132/79 (96) 93 Room Air 10/25/17 13:30 Room Air 10/25/17 11:45 Room Air 10/25/17 11:45 37.0 60 16 133/85 (101) 93 Room Air 10/25/17 11:21 82 20 151/97 96 10/25/17 11:01 97 Room Air 10/25/17 10:23 48 20 128/76 97 Room Air General Appearance: WD/WN, no apparent distress Head: normocephalic, atraumatic Neck: trachea midline Respiratory/Chest: no respiratory distress, no accessory muscle use Abdomen: soft, no organomegaly, no pulsatile mass, + tenderness (appropriate post op at incision sites) Incision(s): clean, dry (dressings clean and dry, incisions not inspected) Laboratory Results: Results Past 24 Hours Test 10/25/17 15:00 10/26/17 06:30 Range/Units Urine Color YELLOW Urine Appearance CLEAR CLEAR Urine pH 6.0 4.5-7.5 Urine Specific [place] 1.027 1.000-1.030 Urine Protein NEG NEG Urine Glucose (UA) NEG NEG Urine Ketones NEG NEG Urine Occult Blood NEG NEG Urine Nitrite NEG NEG Urine Bilirubin NEG NEG Urine Urobilinogen NEG NEG Urine Leukocyte Esterase NEG NEG White Blood Count 12.60 4.8-10.8 K/uL Red Blood Count 4.48 4.7-6.1 M/uL Hemoglobin 13.3 14.0-18.0 g/dL Hematocrit 40.6 42-52 % Mean Corpuscular Volume 90.6 80-100 fL Mean Corpuscular Hemoglobin 29.7 25-34 pg Mean Corpuscular Hemoglobin Concent 32.8 32-36 g/dl Platelet Count 170 130-400 K/uL Mean Platelet Volume 9.1 7.4-10.4 fL Neutrophils (%) (Auto) 86.7 % Lymphocytes (%) (Auto) 8.7 % Monocytes (%) (Auto) 4.4 % Eosinophils (%) (Auto) 0.0 % Basophils (%) (Auto) 0.0 % Neutrophils # (Auto) 10.92 1.4-6.5 K/uL Lymphocytes # (Auto) 1.10 1.2-3.4 K/uL Monocytes # (Auto) 0.55 0.11-0.59 K/uL Eosinophils # (Auto) 0.00 0-0.5 K/uL Basophils # (Auto) 0.00 0-0.2 K/uL RDW Standard Deviation 42.7 36.4-46.3 fL RDW Coefficient of Variation 12.8 11.5-14.5 % Immature Granulocyte % (Auto) 0.2 % Immature Granulocyte # (Auto) 0.03 0.00-0.02 K/uL Sodium Level 138 136-145 mmol/L Potassium Level 4.4 3.5-5.1 mmol/L Chloride Level 106 98-107 mmol/L Carbon Dioxide Level 28 21-32 mmol/L Anion Gap 4.0 3-11 mmol/L Blood Urea Nitrogen 12 7-18 mg/dl Creatinine 1.25 0.60-1.40 mg/dl Est Creatinine Clear Calc Drug Dose 81.3 ml/min Estimated GFR () 73.6 Estimated GFR (Non- 63.5 BUN/Creatinine Ratio 9.9 10-20 Random Glucose 119 70-99 mg/dl Calcium Level 8.1 8.5-10.1 mg/dl Total Bilirubin 0.7 0.2-1 mg/dl Aspartate Amino Transf (AST/SGOT) 46 15-37 U/L Alanine Aminotransferase (ALT/SGPT) 63 12-78 U/L Alkaline Phosphatase 93 45-117 U/L Total Protein 6.8 6.4-8.2 gm/dl Albumin 3.3 3.4-5.0 gm/dl Globulin 3.5 2.5-4.0 gm/dl Albumin/Globulin Ratio 0.9 0.9-2 Lipase 208 73-393 U/L Assessment & Plan POD # 1 s/p laparoscopic cholecystectomy -vitals stable - pain controlled, no nausea/vomiting Plan: Discharge home today discharge instructions reviewed f/u 1-2 weeks in surgical office Dr. Cabrera has seen and examined patient, agrees with above
--- NOTE | 2017-10-30 10:05 | Discharge Summary ---
Discharge Summary Dates Admission Date / Time: Oct 25, 2017 at 10:49 Discharge Date: Oct 26, 2017 Dispostion / Condition Discharge Disposition: Home Condition at Discharge: Good Principal Diagnosis (1) Acute cholecystitis due to biliary calculus Problem List (1) No significant active problems Consultations / Procedures Consultations: None Procedures: Laparoscopic Cholecystectomy Vaccinations: None Pending Studies / Follow-Up Gallbladder pathology, will be reviewed at follow up visit Medication Reconciliation New Medications: Oxycodone/Acetaminophen 5MG/325MG (Percocet 5MG/325MG) Tab 1 TABLET PO Q4H PRN for Pain, #18 TAB Admission HPI Per the Admitting provider: Patient reports a acute onset of epigastric abdominal pain that started approximately 8 hours ago. Since that time the pain has been constant. He describes his discomfort as as being stab with a hot chlorination operator the epigastrium. He rates his discomfort 9/10. The pain is radiating into his back. The pain worsens with his dry heaves. He has not identified any alleviating factors related to the pain. He has not taken any medications for his discomfort prior to arrival at the hospital. Associated with his discomfort as previously noted he reports he has been having multiple episodes of dry heaves but has not had any vomiting and he has been continuously nauseated. Patient denies fevers, chills, sweats, skin eruptions, skin color changes, upper respiratory tract symptoms, shortness of breath, chest pain, diarrhea, constipation, rectal bleeding, black/tarry stools, urinary symptoms, hematuria, flank pain. Hospital Course (1) Acute cholecystitis due to biliary calculus Patient was originally admitted to medical/surgical floor under observation from the emergency room as he did not want to have surgery and wanted to go home. Patient's pain was not adequately controlled therefore he as admitted for pain management and further evaluation. HIDA scan was ordered to rule out biliary obstruction due to gallstones. He had a 1.3 cm stone in the neck of the gallbladder on abdominal ultrasound. He was started on IV fluids, IV pain management prn pain, IV Zofran prn nausea, IV Zosyn, kept NPO, SCDs and activity as tolerated. Later in the afternoon patient decided against HIDA scan and for surgery. Patient was scheduled for laparoscopic cholecystectomy that afternoon. Patient found to have moderate acute cholecystitis and gallbladder wall thickening which prolonged procedure but without any complications. Patient was transferred to recovery room and then back to medical surgical floor his post operative care. He was started on clear liquid diet, IV fluids continued, IV Pain management with PO Percocet, IV Zofran as needed for nausea and activity as tolerated. Patient was evaluated on POD # 1. Vitals stable, pain controlled, tolerated diet, ambulating and urinating without difficulty. Afebrile post op. Slight bump in leukocytosis however no signs of infection. Patient feeling well and wanted to go home. Pt discharged on POD # 1 in stable condition. Discharge Instructions as given to patient Copies To Primary Care Provider: No Doctor, Assigned.
== END 2017-10-26 11:35 | disposition home or self-care (01) ==
LOC: C.EDB 07:51 → C.MSN 10:49 → ENRESERV 11:14
PROVIDERS: ADMIT Surgery; ATTEND Surgery
DX: K80.00 Calculus of gallbladder with acute cholecystitis without obstruction (principal); G47.33 Obstructive sleep apnea (adult) (pediatric); Z99.89 Dependence on other enabling machines and devices; I10 Essential (primary) hypertension

== ENCOUNTER 2018-02-25 08:17 | Inpatient (IN) | payer OTHER ==
[~2018-02-25] VITALS: Ht 177.8 cm; Wt 103.0 kg
[~2018-02-25 08:17] MED LIST changes: -ONDA4TAB7 SL; +OXYC-57 PO
[2018-02-25] MEDS ORDERED: KETOROLAC TROMETHAMINE 30 MG/ML VIAL IV STA (08:37)
[2018-02-25] MEDS ORDERED: SODIUM CHLORIDE 0.9% 1000ML 1,000 ML IV STA (08:37)
[2018-02-25] MEDS ORDERED: ONDANSETRON INJ 2 MG/ML 2 ML VIAL IV STA (08:37)
[2018-02-25] MEDS ORDERED: OPTIRAY 320 IV PRN (09:00)
[2018-02-25 09:05] LABS: BASO % 0.1 %; BASO ABS # 0.01 K/uL (0-0.2); EOS % 0.5 %; EOS ABS # 0.07 K/uL (0-0.5); HEMATOCRIT 46.2 % (42-52); HEMOGLOBIN 16.2 g/dL (14.0-18.0); IG# 0.02 K/uL (0.00-0.02); LYMPH % 8.9 %; LYMPH ABS # 1.25 K/uL (1.2-3.4); MEAN CELL VOLUME 88.3 fL (80-100); MEAN CORPUSCULAR HGB CONC 35.1 g/dl (32-36); MEAN PLATELET VOLUME 9.4 fL (7.4-10.4); MONO % 4.4 %; MONO ABS # 0.62 K/uL (0.11-0.59); NEUT ABS # 12.03 K/uL (1.4-6.5); PLATELET COUNT 168 K/uL (130-400); RED CELL DISTRIBUTION WIDTH CV 13.1 % (11.5-14.5); RED CELL DISTRIBUTION WIDTH SD 42.9 fL (36.4-46.3)
[2018-02-25 09:25] LABS: ALBUMIN 3.7 gm/dl (3.4-5.0); CREATININE 0.98 mg/dl (0.60-1.40); POTASSIUM 3.6 mmol/L (3.5-5.1); TOTAL PROTEIN 8.2 gm/dl (6.4-8.2)
--- NOTE | 2018-02-25 11:45 | DIAGNOSTIC IMAGING REPORT ---
ABD/PELVIS IV AND ORAL CONT CLINICAL HISTORY: 57 years-old Male presenting with ABDOMINAL PAIN/GI. TECHNIQUE: Multidetector CT of the abdomen and pelvis was performed after the administration of oral and intravenous contrast. IV contrast: 94 mL of Optiray 320. A dose lowering technique was used consistent with the principles of ALARA (as low as reasonably achievable). COMPARISON: 08/05/2016. CT DOSE (mGy.cm): The estimated cumulative dose is 1101.12 mGycm. FINDINGS: Lock Plater topogram: Cholecystectomy clips. Surgical clips project over the right renal hilum. Lung bases: Minimal basilar opacities, likely atelectasis. Calcified granuloma in the right middle lobe. Normal heart size. Coronary artery calcification. No pericardial or pleural effusion. Liver: Normal morphology. Density suggestive of hepatic steatosis. No focal lesion. Patent hepatic vasculature. Biliary: No intrahepatic or extrahepatic biliary ductal dilatation. Gallbladder surgically absent. Pancreas: Normal. Spleen: Normal. Prominent splenule near the pancreatic tail. Adrenal glands: Normal. Kidneys and ureters: Redemonstration of mild pelvocaliectasis on the right. In addition, several well-defined hypodensities in the right kidney likely cysts. Surgical clips noted adjacent to the right renal pelvis. Essentially symmetric renal enhancement without evidence of hydronephrosis. No nephrolithiasis. Slight hyperdensity of the right urinary collecting system may represent excreted contrast or inspissated material. Nondistended ureters. Bladder: Circumferential bladder wall thickening. Pelvic organs: Prostate enlargement likely secondary to benign prostatic hyperplasia. Bowel: Extensive pericolonic fat stranding along the sigmoid colon with associated diverticulosis. No bowel obstruction. The appendix is normal. Trace hiatal hernia. Peritoneal cavity: Extensive peritoneal thickening surrounding the sigmoid colon. There is a rim-enhancing 3 cm collection anterior to the rectum immediately superior to the seminal vesicles. A second smaller rim-enhancing collection is noted along the superior left pelvic sidewall measuring 1.5 cm (series 3 image 369). A third focal fluid collection measuring 1.3 cm is noted superior to the mid sigmoid colon in the right lower quadrant (series 3 image 316). Another fluid collection immediately inferior to the proximal to mid sigmoid colon along the superior left aspect of the bladder contains a focus of gas. This collection measures 3.2 cm (series 3 image 379). This does not opacify with oral contrast. Trace free fluid in the superior pelvis. No free gas. Lymph nodes: Several prominent retroperitoneal lymph nodes likely reactive and subcentimeter. No pathologically enlarged lymph nodes. Vasculature: Aorta and IVC patent and normal in caliber. Abdominal wall: Infiltration and/or scarring noted along the right paraspinal region. Musculoskeletal: Degenerative changes of the spine and sacroiliac joints. IMPRESSION: 1. Findings consistent with acute complicated sigmoid diverticulitis. Multiple small abscesses as detailed above, the largest containing a focus of gas and measuring 3.2 cm. This largest abscess may or may not be in continuity with the sigmoid colon though no oral contrast opacified this collection to suggest fistulization. 2. Chronic bladder outlet obstruction due to prostatomegaly. 3. Hepatic steatosis. 4. Chronic mild right ureteropelvic junction obstruction. Electronically signed by: Fabien Alexander M.D. 02/25/2018 11:43 AM Dictated Date/Time: 02/25/2018 11:33 AM
[2018-02-25] MEDS ORDERED: PIPERACILLIN/TAZOBACTAM 4.5 GM/100ML D5W IV STA (12:10)
--- NOTE | 2018-02-25 13:11 | EMERGENCY ROOM VISIT NOTE ---
History Report prepared by Laurita: Darshan Harrison Under the Supervision of: Dr. Panchito Rodríguez D.O. First contact with patient: 08:31 Chief Complaint: ABDOMINAL PAIN Stated Complaint: ABD PAIN SINCE SAT History of Present Illness The patient is a 57 year old male who presents to the Emergency Room with complaints of persistent abdominal pain that onset at 1700 Saturday evening, 29.5 hours ago. The patient describes his pain as "someone sticking me with an ice pic" or a "sharp" sensation. He feels "bloated" as well. He also notes that there is pain in his genitals. He adds that he has been shivering and experiencing chills as well. The patient has noticed a decreased urinary output and adds that his urine has been "orange" in color. He has been drinking fluids and "PowerAid." He has had a cholecystectomy in the past. Source of History: patient Onset: 29.5 hours ago Position: abdomen Quality: sharp Timing: other (persistent) Associated Symptoms: + chills, + urinary symptoms Review of Systems See HPI for pertinent positives & negatives. A total of 10 systems reviewed and were otherwise negative. Past Medical & Surgical Medical Problems: (1) Hydronephrosis (2) No significant active problems Family History No pertinent family history Social History Smoking Status: Never Smoker Alcohol Use: occasionally Drug Use: none Occupation Status: employed Current/Historical Medications No Active Prescriptions or Reported Meds Allergies Coded Allergies: No Known Allergies (Verified , 02/25/18) Uncoded Allergies: ANTIBIOTIC ? (Allergy, Unknown, redness,fever,shakes, 02/10/13) N (Allergy, Unknown, 08/28/02) Physical Exam Vital Signs Date Time Temp Pulse Resp B/P (MAP) Pulse Ox O2 Delivery O2 Flow Rate FiO2 02/25/18 12:04 59 16 128/77 96 Room Air 02/25/18 10:24 58 18 119/78 99 Room Air 02/25/18 08:52 76 16 130/77 93 Room Air 02/25/18 08:19 37.1 92 18 115/78 98 Room Air Physical Exam CONSTITUTIONAL/VITAL SIGNS: Reviewed / noted above. GENERAL: Non-toxic in appearance. INTEGUMENTARY: Warm, dry, and [place]. HEAD: Normocephalic. EYES: without scleral icterus or trauma. ENT/OROPHARYNX: clear and moist. LYMPHADENOPATHY/NECK: Is supple without lymphadenopathy or meningismus. RESPIRATORY: Lungs clear and equal. CARDIOVASCULAR: Regular rate and rhythm. GI/ABDOMEN: Soft with moderate tenderness in the RLQ. No organomegaly or pulsatile mass. No rebound or guarding. Decreased bowel sounds. EXTREMITIES: Warm and well perfused. BACK: No CVA tenderness. NEUROLOGICAL: Intact without focal deficits. PSYCHIATRIC: normal affect. MUSCULOSKELETAL: Normally developed with good muscle tone. Medical Decision & Procedures ER Provider Diagnostic Interpretation: Radiology results as stated below per my review and radiologist interpretation: ABD/PELVIS IV AND ORAL CONT CLINICAL HISTORY: 57 years-old Male presenting with ABDOMINAL PAIN/GI. TECHNIQUE: Multidetector CT of the abdomen and pelvis was performed after the administration of oral and intravenous contrast. IV contrast: 94 mL of Optiray 320. A dose lowering technique was used consistent with the principles of ALARA (as low as reasonably achievable). COMPARISON: 08/05/2016. CT DOSE (mGy.cm): The estimated cumulative dose is 1101.12 mGycm. FINDINGS: Paramedic Rn topogram: Cholecystectomy clips. Surgical clips project over the right renal hilum. Lung bases: Minimal basilar opacities, likely atelectasis. Calcified granuloma in the right middle lobe. Normal heart size. Coronary artery calcification. No pericardial or pleural effusion. Liver: Normal morphology. Density suggestive of hepatic steatosis. No focal lesion. Patent hepatic vasculature. Biliary: No intrahepatic or extrahepatic biliary ductal dilatation. Gallbladder surgically absent. Pancreas: Normal. Spleen: Normal. Prominent splenule near the pancreatic tail. Adrenal glands: Normal. Kidneys and ureters: Redemonstration of mild pelvocaliectasis on the right. In addition, several well-defined hypodensities in the right kidney likely cysts. Surgical clips noted adjacent to the right renal pelvis. Essentially symmetric renal enhancement without evidence of hydronephrosis. No nephrolithiasis. Slight hyperdensity of the right urinary collecting system may represent excreted contrast or inspissated material. Nondistended ureters. Bladder: Circumferential bladder wall thickening. Pelvic organs: Prostate enlargement likely secondary to benign prostatic hyperplasia. Bowel: Extensive pericolonic fat stranding along the sigmoid colon with associated diverticulosis. No bowel obstruction. The appendix is normal. Trace hiatal hernia. Peritoneal cavity: Extensive peritoneal thickening surrounding the sigmoid colon. There is a rim-enhancing 3 cm collection anterior to the rectum immediately superior to the seminal vesicles. A second smaller rim-enhancing collection is noted along the superior left pelvic sidewall measuring 1.5 cm (series 3 image 369). A third focal fluid collection measuring 1.3 cm is noted superior to the mid sigmoid colon in the right lower quadrant (series 3 image 316). Another fluid collection immediately inferior to the proximal to mid sigmoid colon along the superior left aspect of the bladder contains a focus of gas. This collection measures 3.2 cm (series 3 image 379). This does not opacify with oral contrast. Trace free fluid in the superior pelvis. No free gas. Lymph nodes: Several prominent retroperitoneal lymph nodes likely reactive and subcentimeter. No pathologically enlarged lymph nodes. Vasculature: Aorta and IVC patent and normal in caliber. Abdominal wall: Infiltration and/or scarring noted along the right paraspinal region. Musculoskeletal: Degenerative changes of the spine and sacroiliac joints. IMPRESSION: 1. Findings consistent with acute complicated sigmoid diverticulitis. Multiple small abscesses as detailed above, the largest containing a focus of gas and measuring 3.2 cm. This largest abscess may or may not be in continuity with the sigmoid colon though no oral contrast opacified this collection to suggest fistulization. 2. Chronic bladder outlet obstruction due to prostatomegaly. 3. Hepatic steatosis. 4. Chronic mild right ureteropelvic junction obstruction. Electronically signed by: Fabien Alexander M.D. 02/25/2018 11:43 AM Dictated Date/Time: 02/25/2018 11:33 AM Laboratory Results 02/25/18 08:45 Red Blood Count 5.23, Mean Corpuscular Volume 88.3, Mean Corpuscular Hemoglobin 31.0, Mean Corpuscular Hemoglobin Concent 35.1, Mean Platelet Volume 9.4, Neutrophils (%) (Auto) 86.0, Lymphocytes (%) (Auto) 8.9, Monocytes (%) (Auto) 4.4, Eosinophils (%) (Auto) 0.5, Basophils (%) (Auto) 0.1, Neutrophils # (Auto) 12.03, Lymphocytes # (Auto) 1.25, Monocytes # (Auto) 0.62, Eosinophils # (Auto) 0.07, Basophils # (Auto) 0.01 02/25/18 08:45 Test 02/25/18 08:45 White Blood Count 14.00 K/uL (4.8-10.8) Red Blood Count 5.23 M/uL (4.7-6.1) Hemoglobin 16.2 g/dL (14.0-18.0) Hematocrit 46.2 % (42-52) Mean Corpuscular Volume 88.3 fL (80-100) Mean Corpuscular Hemoglobin 31.0 pg (25-34) Mean Corpuscular Hemoglobin Concent 35.1 g/dl (32-36) Platelet Count 168 K/uL (130-400) Mean Platelet Volume 9.4 fL (7.4-10.4) Neutrophils (%) (Auto) 86.0 % Lymphocytes (%) (Auto) 8.9 % Monocytes (%) (Auto) 4.4 % Eosinophils (%) (Auto) 0.5 % Basophils (%) (Auto) 0.1 % Neutrophils # (Auto) 12.03 K/uL (1.4-6.5) Lymphocytes # (Auto) 1.25 K/uL (1.2-3.4) Monocytes # (Auto) 0.62 K/uL (0.11-0.59) Eosinophils # (Auto) 0.07 K/uL (0-0.5) Basophils # (Auto) 0.01 K/uL (0-0.2) RDW Standard Deviation 42.9 fL (36.4-46.3) RDW Coefficient of Variation 13.1 % (11.5-14.5) Immature Granulocyte % (Auto) 0.1 % Immature Granulocyte # (Auto) 0.02 K/uL (0.00-0.02) Anion Gap 8.0 mmol/L (3-11) Est Creatinine Clear Calc Drug Dose 100.4 ml/min Estimated GFR () 98.8 Estimated GFR (Non- 85.2 BUN/Creatinine Ratio 18.8 (10-20) Calcium Level 9.0 mg/dl (8.5-10.1) Total Bilirubin 1.4 mg/dl (0.2-1) Direct Bilirubin 0.5 mg/dl (0-0.2) Aspartate Amino Transf (AST/SGOT) 14 U/L (15-37) Alanine Aminotransferase (ALT/SGPT) 24 U/L (12-78) Alkaline Phosphatase 98 U/L (45-117) Total Protein 8.2 gm/dl (6.4-8.2) Albumin 3.7 gm/dl (3.4-5.0) Lipase 100 U/L (73-393) Laboratory results as stated above per my review. Medications Administered Medications (Trade) Dose Ordered Sig/Cj Route Start Time Stop Time Status Last Admin Dose Admin Sodium Chloride 1,000 ml @ 999 mls/hr Q1H1M STAT IV 02/25/18 08:37 02/25/18 09:37 DC 02/25/18 08:49 999 MLS/HR Ondansetron HCl (Zofran Inj) 4 mg NOW STAT IV 02/25/18 08:37 02/25/18 08:38 DC 02/25/18 08:49 4 MG Ketorolac Tromethamine (Toradol Inj) 30 mg NOW STAT IV 02/25/18 08:37 02/25/18 08:38 DC 02/25/18 08:50 30 MG Piperacillin Sod/ Tazobactam Sod (Zosyn Iv) 4.5 gm NOW STAT IV 02/25/18 12:10 02/25/18 12:11 DC 02/25/18 12:38 4.5 GM ED Course 0833: Previous medical records were reviewed. The patient was evaluated in room B2. A complete history and physical examination was performed. 0837: Ordered Toradol 30 mg IV, Zofran 4 mg IV, SOdium Chloride 1000 mL @ 999 mL /hr IV. 1210: Ordered Zosyn 4.5 gm IV. 1212: I discussed the case with Isabelle Patino - Ina BOWLES. She will discuss with Dr. Cooper and come see the patient. 1214: I updated the patient. He is agreeable to stay. 1257 Isabelle Patino is at bedside with Dr. Cooper - Ina. 1310: Isabelle and Dr. Cooper will admit the patient for further evaluation. Medical Decision Differential considered: pancreatitis, hepatitis, AAA, UTI, pyelonephritis, kidney stones, appendicitis, diverticulitis, shingles, bowel obstruction mesenteric ischemia, intussusception,hernia, This is a 57-year-old male who presents to the ED with a chief complaint of abdominal pain. The patient states that the symptoms started Sunday evening. He describes as a bloating sensation. Most of his pain is in the lower abdomen and rectal area. He describes it also has a sharp pain. The patient states that he had his gallbladder removed in October. His last normal bowel movement was on Sunday. He states that he had a very small bowel movement on Sunday. Denies any urinary symptoms but does report some decreased urine output and decreased appetite. Denies any nausea or vomiting. He has not had any fevers. His vital signs are normal. His physical exam reveals mild tenderness diffusely but moderate tenderness in the right lower quadrant. A CT scan of the abdomen and pelvis reveals acute sigmoid diverticulitis with multiple small abscesses. The largest measuring 3.2 cm. White blood cell count is 14,000. PRP is unremarkable. The patient was treated with IV Toradol , IV Zofran and IV fluids. He was also given IV Zosyn. He was seen by the surgical service. He will be admitted to that service. Medication Reconcilliation Current Medication List: was personally reviewed by me Blood Pressure Screening Patient's blood pressure: Normal blood pressure Consults Time Called: 1210 Consulting Physician: Isabelle Buckley PA-C Returned Call: 1212 I discussed the case with Isabelle Buckley PA-C. She will discuss with Dr. Cooper and come see the patient. Impression Primary Impression: Diverticulitis of intestine with abscess Scribe Attestation The scribe's documentation has been prepared under my direction and personally reviewed by me in its entirety. I confirm that the note above accurately reflects all work, treatment, procedures, and medical decision making performed by me. Departure Information Dispostion Being Evaluated By Surgeon Prescriptions No Active Prescriptions or Reported Meds Referrals No Doctor, Assigned (PCP) Patient Instructions My [facility]
[2018-02-25] MEDS ORDERED: ONDANSETRON INJ 2 MG/ML 2 ML VIAL IV PRN (13:45)
[2018-02-25] MEDS ORDERED: MoRPHine SULFATE 2 MG/ML CARP IV PRN ×2 (13:45)
[2018-02-25] MEDS ORDERED: MoRPHine SULFATE 4 MG/ML 1 ML CARP\\VIAL IV PRN (13:45)
--- NOTE | 2018-02-25 13:50 | History and Physical ---
History & Physical Date & Time of Service: Feb 25, 2018 at 13:41 Chief Complaint: Abd Pain Since Sat Primary Care Physician: No Doctor, Assigned History of Present Illness Source: patient Mandeep is a pleasant 57 year-old male who presented to emergency department this morning with complaint of abdominal pain, abdominal bloating, chills/shakes starting Sunday around 1500. States he was in his normal state of health on Sunday. Describes the pain as sharp stabbing pain, worse with any movement, and located in the lower abdomen with radiation down into the groin. States he has been in the emergency room three other times for gas pains throughout this year. Had his gallbladder removed laparoscopically by Dr. Cabrera in October of this year. Denies of known fevers, nausea, vomiting, chest pain, shortness of breath, difficulty breathing, changes in bowel habits, diarrhea, constipation, blood in stools or black tarry stools, difficulty urinating, or blood in urine. States he noticed decreased urine output and dark orange color but no difficulty urinating. Never had diverticulosis/diverticulitis in the past. ER work-up included labs which showed leukocytosis of 14K, afebrile, CT scan of abdomen and pelvis with oral contrast showing findings consistent with acute complicated sigmoid diverticulitis. Multiple small abscesses the largest containing a focus of gas and measuring 3.2 cm. This largest abscess may or may not be in continuity with the sigmoid colon though no oral contrast opacified this collection to suggest fistulization. Past Medical/Surgical History Medical Problems: (1) Abdominal pain (2) Acute cholecystitis due to biliary calculus (3) Hydronephrosis (4) Hypertension (5) Sleep apnea Past Surgical History: 1. Laparoscopic cholecystectomy 2. Ureteral stent Family History No pertinent family history Social History Smoking Status: Never Smoker Drug Use: none Occupational Status: employed Allergies Coded Allergies: No Known Allergies (Verified , 02/25/18) Uncoded Allergies: ANTIBIOTIC ? (Allergy, Unknown, redness,fever,shakes, 02/10/13) Home Medications No Active Prescriptions or Reported Meds Review of Systems Constitutional: + chills, + sweats, No fever Respiratory: No cough, No shortness of breath Cardiovascular: No chest pain Abdomen: + pain, + problem reported (abdominal bloating), No nausea, No vomiting, No diarrhea, No constipation, No GI bleeding Genitourinary - Male: No hematuria, No dysuria, No urinary frequency, No urinary urgency, No urinary incontinence Endocrine: No fatigue Hematologic / Lymphatic: No abnormal bleeding/bruising Integumentary: No rash Physical Exam Vital Signs Date Time Temp Pulse Resp B/P (MAP) Pulse Ox O2 Delivery O2 Flow Rate FiO2 02/25/18 12:04 59 16 128/77 96 Room Air 02/25/18 10:24 58 18 119/78 99 Room Air 02/25/18 08:52 76 16 130/77 93 Room Air 02/25/18 08:19 37.1 92 18 115/78 98 Room Air General Appearance: WD/WN, no apparent distress Head: normocephalic, atraumatic Eyes: sclerae normal ENT: hearing grossly normal Neck: trachea midline Respiratory/Chest: no respiratory distress, no accessory muscle use Cardiovascular: regular rate, rhythm, no murmur Abdomen/GI: soft, no organomegaly, no pulsatile mass, + tenderness (lower abdominal tenderness more so in the RLQ on mild palpation with guarding, no rigidity, peritonitis, or rebound) Back: normal inspection Extremities/Musculoskelatal: no pedal edema Neurologic/Psych: alert, normal mood/affect, oriented x 3 Skin: normal color, warm/dry, no rash Diagnostics Laboratory Results Results Past 24 Hours Test 02/25/18 08:45 Range/Units White Blood Count 14.00 4.8-10.8 K/uL Red Blood Count 5.23 4.7-6.1 M/uL Hemoglobin 16.2 14.0-18.0 g/dL Hematocrit 46.2 42-52 % Mean Corpuscular Volume 88.3 80-100 fL Mean Corpuscular Hemoglobin 31.0 25-34 pg Mean Corpuscular Hemoglobin Concent 35.1 32-36 g/dl Platelet Count 168 130-400 K/uL Mean Platelet Volume 9.4 7.4-10.4 fL Neutrophils (%) (Auto) 86.0 % Lymphocytes (%) (Auto) 8.9 % Monocytes (%) (Auto) 4.4 % Eosinophils (%) (Auto) 0.5 % Basophils (%) (Auto) 0.1 % Neutrophils # (Auto) 12.03 1.4-6.5 K/uL Lymphocytes # (Auto) 1.25 1.2-3.4 K/uL Monocytes # (Auto) 0.62 0.11-0.59 K/uL Eosinophils # (Auto) 0.07 0-0.5 K/uL Basophils # (Auto) 0.01 0-0.2 K/uL RDW Standard Deviation 42.9 36.4-46.3 fL RDW Coefficient of Variation 13.1 11.5-14.5 % Immature Granulocyte % (Auto) 0.1 % Immature Granulocyte # (Auto) 0.02 0.00-0.02 K/uL Sodium Level 135 136-145 mmol/L Potassium Level 3.6 3.5-5.1 mmol/L Chloride Level 102 98-107 mmol/L Carbon Dioxide Level 25 21-32 mmol/L Anion Gap 8.0 3-11 mmol/L Blood Urea Nitrogen 18 7-18 mg/dl Creatinine 0.98 0.60-1.40 mg/dl Est Creatinine Clear Calc Drug Dose 100.4 ml/min Estimated GFR () 98.8 Estimated GFR (Non- 85.2 BUN/Creatinine Ratio 18.8 10-20 Random Glucose 98 70-99 mg/dl Calcium Level 9.0 8.5-10.1 mg/dl Total Bilirubin 1.4 0.2-1 mg/dl Direct Bilirubin 0.5 0-0.2 mg/dl Aspartate Amino Transf (AST/SGOT) 14 15-37 U/L Alanine Aminotransferase (ALT/SGPT) 24 12-78 U/L Alkaline Phosphatase 98 45-117 U/L Total Protein 8.2 6.4-8.2 gm/dl Albumin 3.7 3.4-5.0 gm/dl Lipase 100 73-393 U/L Diagnostic Radiology ABD/PELVIS IV AND ORAL CONT CLINICAL HISTORY: 57 years-old Male presenting with ABDOMINAL PAIN/GI. TECHNIQUE: Multidetector CT of the abdomen and pelvis was performed after the administration of oral and intravenous contrast. IV contrast: 94 mL of Optiray 320. A dose lowering technique was used consistent with the principles of ALARA (as low as reasonably achievable). COMPARISON: 08/05/2016. CT DOSE (mGy.cm): The estimated cumulative dose is 1101.12 mGycm. FINDINGS: Balloon Artist topogram: Cholecystectomy clips. Surgical clips project over the right renal hilum. Lung bases: Minimal basilar opacities, likely atelectasis. Calcified granuloma in the right middle lobe. Normal heart size. Coronary artery calcification. No pericardial or pleural effusion. Liver: Normal morphology. Density suggestive of hepatic steatosis. No focal lesion. Patent hepatic vasculature. Biliary: No intrahepatic or extrahepatic biliary ductal dilatation. Gallbladder surgically absent. Pancreas: Normal. Spleen: Normal. Prominent splenule near the pancreatic tail. Adrenal glands: Normal. Kidneys and ureters: Redemonstration of mild pelvocaliectasis on the right. In addition, several well-defined hypodensities in the right kidney likely cysts. Surgical clips noted adjacent to the right renal pelvis. Essentially symmetric renal enhancement without evidence of hydronephrosis. No nephrolithiasis. Slight hyperdensity of the right urinary collecting system may represent excreted contrast or inspissated material. Nondistended ureters. Bladder: Circumferential bladder wall thickening. Pelvic organs: Prostate enlargement likely secondary to benign prostatic hyperplasia. Bowel: Extensive pericolonic fat stranding along the sigmoid colon with associated diverticulosis. No bowel obstruction. The appendix is normal. Trace hiatal hernia. Peritoneal cavity: Extensive peritoneal thickening surrounding the sigmoid colon. There is a rim-enhancing 3 cm collection anterior to the rectum immediately superior to the seminal vesicles. A second smaller rim-enhancing collection is noted along the superior left pelvic sidewall measuring 1.5 cm (series 3 image 369). A third focal fluid collection measuring 1.3 cm is noted superior to the mid sigmoid colon in the right lower quadrant (series 3 image 316). Another fluid collection immediately inferior to the proximal to mid sigmoid colon along the superior left aspect of the bladder contains a focus of gas. This collection measures 3.2 cm (series 3 image 379). This does not opacify with oral contrast. Trace free fluid in the superior pelvis. No free gas. Lymph nodes: Several prominent retroperitoneal lymph nodes likely reactive and subcentimeter. No pathologically enlarged lymph nodes. Vasculature: Aorta and IVC patent and normal in caliber. Abdominal wall: Infiltration and/or scarring noted along the right paraspinal region. Musculoskeletal: Degenerative changes of the spine and sacroiliac joints. IMPRESSION: 1. Findings consistent with acute complicated sigmoid diverticulitis. Multiple small abscesses as detailed above, the largest containing a focus of gas and measuring 3.2 cm. This largest abscess may or may not be in continuity with the sigmoid colon though no oral contrast opacified this collection to suggest fistulization. 2. Chronic bladder outlet obstruction due to prostatomegaly. 3. Hepatic steatosis. 4. Chronic mild right ureteropelvic junction obstruction. Impression Assessment and Plan 57 year-old male who presented to emergency department with 2 day history of lower abdominal pain, bloating, cramping, and chills/sweats/shakes. CT scan showing evidence of complicated acute diverticulitis of the sigmoid colon with multiple small abscess with the largest containing a focus of gas and measuring 3.2 cm. Afebrile on admission. Leukocytosis of 14K. No pneumoperitoneum. Abdomen is soft, mildly distended, tenderness in the RLQ with guarding no peritonitis. Plan: Plan to admit patient to the medical/surgical floor for conservative management with IV fluids, IV broad spectrum antibiotics: Zosyn, IV pain medication as needed, IV Zofran as needed, and kept NPO for bowel rest. Will ensure patient has set of labs tomorrow morning SCDs for DVT prophylaxis Will monitor response with IV antibiotics in next 24-48 hours and decide on timing of possible repeat CT scan. Dr. Cooper has seen and examined patient, agrees with above. Resuscitation Status VTE Prophylaxis Will order VTE Prophylaxis: Yes Note I have interviewed and examined this patient and reviewed the labs and radiology reports and I agree with the above note. The patient has acute diverticulitis with areas that appear to be small abscesses. I agree with conservative management with IV antibiotics and bowel rest to start. We will continue to follow him with serial exams. A repeat CT may be necessary to assess for success of treatment plan.
[2018-02-25 14:34] VITALS: BP 137/84; PULSE 65; TEMP 36.9; O2SAT 98; BMI 32.6
[2018-02-25] MEDS: D5W AND 1/2NSS + 20MEQ KCL 1,000 ML IV SCH (15:17)
[2018-02-25] MEDS: PIPERACILL/TAZOBAC IV 3.375 GM in DEXTROSE 5% 100ML 100 ML IV SCH (15:30)
[2018-02-25 22:51] VITALS: BP 119/75; PULSE 79; TEMP 37.1; O2SAT 96
[2018-02-26] MEDS: D5W AND 1/2NSS + 20MEQ KCL 1,000 ML IV SCH ×4 (00:16→23:59)
[2018-02-26] MEDS: PIPERACILL/TAZOBAC IV 3.375 GM in DEXTROSE 5% 100ML 100 ML IV SCH ×4 (00:20→23:59)
[2018-02-26] MEDS ORDERED: PIPERACILL/TAZOBAC CONSULT ACTIVE PRN (07:30)
[2018-02-26 07:41] LABS: BASO % 0.2 %; BASO ABS # 0.02 K/uL (0-0.2); EOS % 1.8 %; EOS ABS # 0.18 K/uL (0-0.5); HEMATOCRIT 39.8 % (42-52); HEMOGLOBIN 13.4 g/dL (14.0-18.0); IG# 0.03 K/uL (0.00-0.02); LYMPH % 11.1 %; LYMPH ABS # 1.13 K/uL (1.2-3.4); MEAN CORPUSCULAR HGB CONC 33.7 g/dl (32-36); MEAN PLATELET VOLUME 9.5 fL (7.4-10.4); MONO % 6.1 %; MONO ABS # 0.62 K/uL (0.11-0.59); NEUT % 80.5 %; NEUT ABS # 8.22 K/uL (1.4-6.5); PLATELET COUNT 180 K/uL (130-400); RED CELL DISTRIBUTION WIDTH CV 13.2 % (11.5-14.5); RED CELL DISTRIBUTION WIDTH SD 43.1 fL (36.4-46.3)
[2018-02-26 07:45] VITALS: BP 110/75; PULSE 71; TEMP 36.9; O2SAT 91
[2018-02-26 07:48] LABS: CALCIUM 8.1 mg/dl (8.5-10.1); CREATININE 1.02 mg/dl (0.60-1.40); POTASSIUM 3.6 mmol/L (3.5-5.1)
--- NOTE | 2018-02-26 08:52 | Surgery Progress Note ---
Surgery Progress Note Date of Service Feb 26, 2018. Subjective + bowel movement (loose), + flatus, No nausea, No vomiting Feels "100% better" Objective Vital Signs: Date Time Temp Pulse Resp B/P (MAP) Pulse Ox O2 Delivery O2 Flow Rate FiO2 02/26/18 07:45 36.9 71 20 110/75 (87) 91 Room Air 02/25/18 23:25 Room Air 02/25/18 22:51 37.1 79 18 119/75 (90) 96 Room Air 02/25/18 15:15 Room Air 02/25/18 14:34 36.9 65 16 137/84 98 Room Air 02/25/18 13:58 64 18 111/65 95 Room Air 02/25/18 12:04 59 16 128/77 96 Room Air 02/25/18 10:24 58 18 119/78 99 Room Air 02/25/18 08:52 76 16 130/77 93 Room Air Abdomen: non distended, + tenderness (right side mostly, decreased) Laboratory Results: Results Past 24 Hours Test 02/26/18 06:51 Range/Units White Blood Count 10.20 4.8-10.8 K/uL Red Blood Count 4.47 4.7-6.1 M/uL Hemoglobin 13.4 14.0-18.0 g/dL Hematocrit 39.8 42-52 % Mean Corpuscular Volume 89.0 80-100 fL Mean Corpuscular Hemoglobin 30.0 25-34 pg Mean Corpuscular Hemoglobin Concent 33.7 32-36 g/dl Platelet Count 180 130-400 K/uL Mean Platelet Volume 9.5 7.4-10.4 fL Neutrophils (%) (Auto) 80.5 % Lymphocytes (%) (Auto) 11.1 % Monocytes (%) (Auto) 6.1 % Eosinophils (%) (Auto) 1.8 % Basophils (%) (Auto) 0.2 % Neutrophils # (Auto) 8.22 1.4-6.5 K/uL Lymphocytes # (Auto) 1.13 1.2-3.4 K/uL Monocytes # (Auto) 0.62 0.11-0.59 K/uL Eosinophils # (Auto) 0.18 0-0.5 K/uL Basophils # (Auto) 0.02 0-0.2 K/uL RDW Standard Deviation 43.1 36.4-46.3 fL RDW Coefficient of Variation 13.2 11.5-14.5 % Immature Granulocyte % (Auto) 0.3 % Immature Granulocyte # (Auto) 0.03 0.00-0.02 K/uL Sodium Level 139 136-145 mmol/L Potassium Level 3.6 3.5-5.1 mmol/L Chloride Level 104 98-107 mmol/L Carbon Dioxide Level 28 21-32 mmol/L Anion Gap 7.0 3-11 mmol/L Blood Urea Nitrogen 14 7-18 mg/dl Creatinine 1.02 0.60-1.40 mg/dl Est Creatinine Clear Calc Drug Dose 96.1 ml/min Estimated GFR () 94.1 Estimated GFR (Non- 81.2 BUN/Creatinine Ratio 14.1 10-20 Random Glucose 96 70-99 mg/dl Calcium Level 8.1 8.5-10.1 mg/dl Assessment & Plan Diverticulitis with small abscesses Clinically somewhat improved Can start clear liquids Continue IV antibiotics Ambulate
[2018-02-26 09:53] VITALS: O2SAT 91
[2018-02-26 11:32] VITALS: Ht 177.8 cm; Wt 103.0 kg
[2018-02-26 15:07] VITALS: BP 117/73; PULSE 67; TEMP 36.7; O2SAT 95
[2018-02-26 22:49] VITALS: BP 106/65; PULSE 70; TEMP 36.7; O2SAT 97
[2018-02-27] MEDS: D5W AND 1/2NSS + 20MEQ KCL 1,000 ML IV SCH ×3 (07:09→21:45)
[2018-02-27] MEDS: PIPERACILL/TAZOBAC IV 3.375 GM in DEXTROSE 5% 100ML 100 ML IV SCH ×3 (07:36→23:39)
[2018-02-27 07:40] VITALS: BP 114/78; PULSE 64; TEMP 36.6; O2SAT 99
[2018-02-27 08:11] LABS: HEMATOCRIT 40.8 % (42-52); HEMOGLOBIN 13.5 g/dL (14.0-18.0); MEAN CELL VOLUME 89.7 fL (80-100); MEAN CORPUSCULAR HEMOGLOBIN 29.7 pg (25-34); MEAN CORPUSCULAR HGB CONC 33.1 g/dl (32-36); MEAN PLATELET VOLUME 9.5 fL (7.4-10.4); PLATELET COUNT 194 K/uL (130-400); RED CELL DISTRIBUTION WIDTH CV 13.2 % (11.5-14.5); RED CELL DISTRIBUTION WIDTH SD 42.8 fL (36.4-46.3); WHITE BLOOD COUNT 7.77 K/uL (4.8-10.8)
[2018-02-27 08:44] LABS: CALCIUM 8.6 mg/dl (8.5-10.1); CREATININE 0.94 mg/dl (0.60-1.40); POTASSIUM 3.9 mmol/L (3.5-5.1)
[2018-02-27 09:01] VITALS: O2SAT 99
--- NOTE | 2018-02-27 09:49 | Surgery Progress Note ---
Surgery Progress Note Date of Service Feb 27, 2018. Subjective + bowel movement (Multiple loose), + diet (tolerating clear liqids), No nausea, No vomiting Less pain Objective Vital Signs: Date Time Temp Pulse Resp B/P (MAP) Pulse Ox O2 Delivery O2 Flow Rate FiO2 02/27/18 09:01 99 Room Air 02/27/18 07:40 36.6 64 15 114/78 (90) 99 Room Air 02/27/18 07:10 Room Air 02/27/18 00:02 Room Air 02/26/18 22:49 36.7 70 18 106/65 (79) 97 Room Air 02/26/18 15:30 Room Air 02/26/18 15:07 36.7 67 18 117/73 (88) 95 Room Air 02/26/18 09:53 91 Room Air Abdomen: non distended, soft, + tenderness (decreased by about half) Laboratory Results: Results Past 24 Hours Test 02/27/18 07:49 Range/Units White Blood Count 7.77 4.8-10.8 K/uL Red Blood Count 4.55 4.7-6.1 M/uL Hemoglobin 13.5 14.0-18.0 g/dL Hematocrit 40.8 42-52 % Mean Corpuscular Volume 89.7 80-100 fL Mean Corpuscular Hemoglobin 29.7 25-34 pg Mean Corpuscular Hemoglobin Concent 33.1 32-36 g/dl RDW Standard Deviation 42.8 36.4-46.3 fL RDW Coefficient of Variation 13.2 11.5-14.5 % Platelet Count 194 130-400 K/uL Mean Platelet Volume 9.5 7.4-10.4 fL Sodium Level 139 136-145 mmol/L Potassium Level 3.9 3.5-5.1 mmol/L Chloride Level 107 98-107 mmol/L Carbon Dioxide Level 28 21-32 mmol/L Anion Gap 3.0 3-11 mmol/L Blood Urea Nitrogen 7 7-18 mg/dl Creatinine 0.94 0.60-1.40 mg/dl Est Creatinine Clear Calc Drug Dose 104.2 ml/min Estimated GFR () 103.9 Estimated GFR (Non- 89.6 BUN/Creatinine Ratio 7.6 10-20 Random Glucose 96 70-99 mg/dl Calcium Level 8.6 8.5-10.1 mg/dl Assessment & Plan Diverticulitis with small abscesses Clinically improved again Continue clear liquids Continue IV antibiotics Ambulate Repeat CT scan in AM
[2018-02-27] MEDS ORDERED: OPTIRAY 320 IV PRN (10:15)
[2018-02-27 15:16] VITALS: BP 120/83; PULSE 74; TEMP 37.1; O2SAT 98
[2018-02-27 23:18] VITALS: BP 126/69; PULSE 76; TEMP 36.4; O2SAT 99
[2018-02-28 03:15] VITALS: BP 118/78; PULSE 73; TEMP 36.6; O2SAT 96
[2018-02-28] MEDS: D5W AND 1/2NSS + 20MEQ KCL 1,000 ML IV SCH ×3 (05:58→22:42)
[2018-02-28 07:14] LABS: HEMATOCRIT 40.2 % (42-52); HEMOGLOBIN 13.5 g/dL (14.0-18.0); MEAN CELL VOLUME 88.7 fL (80-100); MEAN CORPUSCULAR HEMOGLOBIN 29.8 pg (25-34); MEAN CORPUSCULAR HGB CONC 33.6 g/dl (32-36); MEAN PLATELET VOLUME 8.7 fL (7.4-10.4); PLATELET COUNT 193 K/uL (130-400); WHITE BLOOD COUNT 7.45 K/uL (4.8-10.8)
[2018-02-28 07:25] VITALS: BP 143/83; PULSE 66; TEMP 36.4; O2SAT 98
[2018-02-28 07:47] LABS: CREATININE 0.99 mg/dl (0.60-1.40)
[2018-02-28 07:48] LABS: CALCIUM 8.4 mg/dl (8.5-10.1); POTASSIUM 3.7 mmol/L (3.5-5.1)
--- NOTE | 2018-02-28 08:33 | DIAGNOSTIC IMAGING REPORT ---
ABD/PELVIS IV AND ORAL CONT CLINICAL HISTORY: 57 years-old Male presenting with reevaluate acute diverticulitis. TECHNIQUE: Multidetector CT of the abdomen and pelvis was performed after the administration of oral and intravenous contrast. IV contrast: 94 mL of Optiray 320. A dose lowering technique was used consistent with the principles of ALARA (as low as reasonably achievable). COMPARISON: 02/25/2018. CT DOSE (mGy.cm): The estimated cumulative dose is 1063.27 mGycm. FINDINGS: Field Service Representative topogram: Cholecystectomy clips and additional surgical clips project over the right mid abdomen. Lung bases: Right middle lobe calcified granuloma. Normal heart size. Coronary artery calcification. No pericardial or pleural effusion. Liver: Normal morphology. Density suggestive of hepatic steatosis. Hypodensity in the gallbladder fossa likely either perfusional variation or focal fat. No focal lesion. Patent hepatic vasculature. Biliary: No intrahepatic or extrahepatic biliary ductal dilatation. Gallbladder surgically absent. Pancreas: Normal. Spleen: Normal. Adrenal glands: Normal. Kidneys and ureters: Moderate right pelvocaliectasis with surgical clips noted at the abrupt caliber change of the right renal pelvis to the proximal right ureter, which is nondilated. The appearance is unchanged from prior and may suggest chronic ureteropelvic junction obstruction. Several right cysts also suggested. No nephrolithiasis. Left kidney normal. Bladder: Circumferential wall thickening and perivesicular fat stranding allowing for underdistention. Pelvic organs: Prostate enlargement likely secondary to benign prostatic hyperplasia. Bowel: Wall thickening of the rectum from prior. Diverticulosis with extensive wall thickening and pericolonic inflammatory change along the mid to distal portion of the sigmoid colon as on prior exam. The degree of pericolonic inflammation is overall stable from prior. Significant surrounding peritoneal thickening. Mild wall thickening of the distal descending colon is new from prior. Remaining colon normal. No bowel obstruction. The appendix is normal. Peritoneal cavity: Redemonstration of multiple rim-enhancing fluid collections consistent with abscesses surrounding the inflamed sigmoid colon. The largest in the rectoprostatic recess measures 3.1 cm in diameter, previously 3.0 cm (series 3 image 380). Left pelvic sidewall collection now measures 1.7 cm, previously 1.5 cm (series 3 image 377). The gas containing collection immediately superior to the bladder along the left bladder dome now measures 2.6 cm, previously 3.2 cm (series 3 image 389). This contains a similar amount of gas. Small additional abscess in the right lower quadrant/right mid abdomen now measures 1.1 cm, previously 1.3 cm (see series 3 image 332). Additionally, new 1.3 cm right pelvic sidewall abscess (series 3 image 345). Significant peritoneal inflammation in the pelvis. No free intraperitoneal gas. Lymph nodes: Few subcentimeter external iliac lymph nodes, likely reactive. Additional subcentimeter retroperitoneal lymph nodes noted. Vasculature: Aorta and IVC patent and normal in caliber. Abdominal wall: Bilateral varicoceles may be present. Musculoskeletal: Degenerative changes of the spine. Degenerative changes of the sacroiliac joints. IMPRESSION: 1. Overall stable appearance of multiple pelvic abscesses though there is a new 1.3 cm right pelvic sidewall abscess. These abscesses surround the significantly inflamed sigmoid colon in the setting of acute complicated sigmoid diverticulitis. The largest abscess measures 3.1 cm, which is in the rectoprostatic recess. 2. Chronic bladder outlet obstruction and likely secondary 3. Testicular inflammatory change secondary to diverticulitis. 4. Suspected hepatic steatosis. 5. Additional chronic findings as above. Electronically signed by: Fabien Alexander M.D. 02/28/2018 8:31 AM Dictated Date/Time: 02/28/2018 8:12 AM
[2018-02-28] MEDS: PIPERACILL/TAZOBAC IV 3.375 GM in DEXTROSE 5% 100ML 100 ML IV SCH ×3 (08:37→23:20)
--- NOTE | 2018-02-28 10:36 | Surgery Progress Note ---
Surgery Progress Note Date of Service Feb 28, 2018. Subjective + bowel movement (multiple loose), + diet (tolerated clearliquid diet), No nausea, No vomiting Less pain today Objective Vital Signs: Date Time Temp Pulse Resp B/P (MAP) Pulse Ox O2 Delivery O2 Flow Rate FiO2 02/28/18 07:50 Room Air 02/28/18 07:25 36.4 66 18 143/83 (103) 98 Room Air 02/28/18 03:15 36.6 73 16 118/78 (91) 96 Room Air 02/27/18 23:20 Room Air 02/27/18 23:18 36.4 76 16 126/69 (88) 99 Room Air 02/27/18 15:35 Room Air 02/27/18 15:16 37.1 74 18 120/83 (95) 98 Abdomen: non distended, soft, + tenderness (less tender again today) Laboratory Results: Results Past 24 Hours Test 02/28/18 03:02 02/28/18 06:55 Range/Units Urine Color YELLOW Urine Appearance CLEAR CLEAR Urine pH 6.5 4.5-7.5 Urine Specific [place] 1.006 1.000-1.030 Urine Protein NEG NEG Urine Glucose (UA) NEG NEG Urine Ketones NEG NEG Urine Occult Blood NEG NEG Urine Nitrite NEG NEG Urine Bilirubin NEG NEG Urine Urobilinogen NEG NEG Urine Leukocyte Esterase NEG NEG White Blood Count 7.45 4.8-10.8 K/uL Red Blood Count 4.53 4.7-6.1 M/uL Hemoglobin 13.5 14.0-18.0 g/dL Hematocrit 40.2 42-52 % Mean Corpuscular Volume 88.7 80-100 fL Mean Corpuscular Hemoglobin 29.8 25-34 pg Mean Corpuscular Hemoglobin Concent 33.6 32-36 g/dl RDW Standard Deviation 42.0 36.4-46.3 fL RDW Coefficient of Variation 13.0 11.5-14.5 % Platelet Count 193 130-400 K/uL Mean Platelet Volume 8.7 7.4-10.4 fL Sodium Level 139 136-145 mmol/L Potassium Level 3.7 3.5-5.1 mmol/L Chloride Level 107 98-107 mmol/L Carbon Dioxide Level 27 21-32 mmol/L Anion Gap 5.0 3-11 mmol/L Blood Urea Nitrogen 5 7-18 mg/dl Creatinine 0.99 0.60-1.40 mg/dl Est Creatinine Clear Calc Drug Dose 99.0 ml/min Estimated GFR () 97.6 Estimated GFR (Non- 84.2 BUN/Creatinine Ratio 4.7 10-20 Random Glucose 95 70-99 mg/dl Calcium Level 8.4 8.5-10.1 mg/dl Diagnostic Interpretation: ABD/PELVIS IV AND ORAL CONT CLINICAL HISTORY: 57 years-old Male presenting with reevaluate acute diverticulitis. TECHNIQUE: Multidetector CT of the abdomen and pelvis was performed after the administration of oral and intravenous contrast. IV contrast: 94 mL of Optiray 320. A dose lowering technique was used consistent with the principles of ALARA (as low as reasonably achievable). COMPARISON: 02/25/2018. CT DOSE (mGy.cm): The estimated cumulative dose is 1063.27 mGycm. FINDINGS: Field Producer topogram: Cholecystectomy clips and additional surgical clips project over the right mid abdomen. Lung bases: Right middle lobe calcified granuloma. Normal heart size. Coronary artery calcification. No pericardial or pleural effusion. Liver: Normal morphology. Density suggestive of hepatic steatosis. Hypodensity in the gallbladder fossa likely either perfusional variation or focal fat. No focal lesion. Patent hepatic vasculature. Biliary: No intrahepatic or extrahepatic biliary ductal dilatation. Gallbladder surgically absent. Pancreas: Normal. Spleen: Normal. Adrenal glands: Normal. Kidneys and ureters: Moderate right pelvocaliectasis with surgical clips noted at the abrupt caliber change of the right renal pelvis to the proximal right ureter, which is nondilated. The appearance is unchanged from prior and may suggest chronic ureteropelvic junction obstruction. Several right cysts also suggested. No nephrolithiasis. Left kidney normal. Bladder: Circumferential wall thickening and perivesicular fat stranding allowing for underdistention. Pelvic organs: Prostate enlargement likely secondary to benign prostatic hyperplasia. Bowel: Wall thickening of the rectum from prior. Diverticulosis with extensive wall thickening and pericolonic inflammatory change along the mid to distal portion of the sigmoid colon as on prior exam. The degree of pericolonic inflammation is overall stable from prior. Significant surrounding peritoneal thickening. Mild wall thickening of the distal descending colon is new from prior. Remaining colon normal. No bowel obstruction. The appendix is normal. Peritoneal cavity: Redemonstration of multiple rim-enhancing fluid collections consistent with abscesses surrounding the inflamed sigmoid colon. The largest in the rectoprostatic recess measures 3.1 cm in diameter, previously 3.0 cm (series 3 image 380). Left pelvic sidewall collection now measures 1.7 cm, previously 1.5 cm (series 3 image 377). The gas containing collection immediately superior to the bladder along the left bladder dome now measures 2.6 cm, previously 3.2 cm (series 3 image 389). This contains a similar amount of gas. Small additional abscess in the right lower quadrant/right mid abdomen now measures 1.1 cm, previously 1.3 cm (see series 3 image 332). Additionally, new 1.3 cm right pelvic sidewall abscess (series 3 image 345). Significant peritoneal inflammation in the pelvis. No free intraperitoneal gas. Lymph nodes: Few subcentimeter external iliac lymph nodes, likely reactive. Additional subcentimeter retroperitoneal lymph nodes noted. Vasculature: Aorta and IVC patent and normal in caliber. Abdominal wall: Bilateral varicoceles may be present. Musculoskeletal: Degenerative changes of the spine. Degenerative changes of the sacroiliac joints. IMPRESSION: 1. Overall stable appearance of multiple pelvic abscesses though there is a new 1.3 cm right pelvic sidewall abscess. These abscesses surround the significantly inflamed sigmoid colon in the setting of acute complicated sigmoid diverticulitis. The largest abscess measures 3.1 cm, which is in the rectoprostatic recess. 2. Chronic bladder outlet obstruction and likely secondary 3. Testicular inflammatory change secondary to diverticulitis. 4. Suspected hepatic steatosis. 5. Additional chronic findings as above. Assessment & Plan Diverticulitis with small abscesses CT essentially unchanged Clinically improved again Continue clear liquids Continue IV antibiotics Ambulate Consider plan for home antibiotics Will have social service see the patient Check C diff
[2018-02-28 15:38] VITALS: BP 137/85; PULSE 64; TEMP 37; O2SAT 97
[2018-02-28 16:00] VITALS: O2SAT 97
[2018-02-28 22:50] VITALS: BP 114/73; PULSE 65; TEMP 36.6; O2SAT 98
[2018-03-01] MEDS: D5W AND 1/2NSS + 20MEQ KCL 1,000 ML IV SCH (05:52)
[2018-03-01 06:10] LABS: HEMATOCRIT 41.6 % (42-52); HEMOGLOBIN 13.8 g/dL (14.0-18.0); MEAN CELL VOLUME 88.9 fL (80-100); MEAN CORPUSCULAR HEMOGLOBIN 29.5 pg (25-34); MEAN CORPUSCULAR HGB CONC 33.2 g/dl (32-36); MEAN PLATELET VOLUME 9.1 fL (7.4-10.4); PLATELET COUNT 228 K/uL (130-400); RED CELL DISTRIBUTION WIDTH CV 12.9 % (11.5-14.5); RED CELL DISTRIBUTION WIDTH SD 41.4 fL (36.4-46.3); WHITE BLOOD COUNT 7.41 K/uL (4.8-10.8)
[2018-03-01 07:50] VITALS: BP 118/76; PULSE 64; TEMP 36.8; O2SAT 98
[2018-03-01] MEDS: PIPERACILL/TAZOBAC IV 3.375 GM in DEXTROSE 5% 100ML 100 ML IV SCH ×2 (08:19→16:00)
--- NOTE | 2018-03-01 09:11 | Surgery Progress Note ---
Surgery Progress Note Date of Service Mar 01, 2018. Subjective Post OP Day: HD 5 + feeling well, + bowel movement (some pain), + diet (clears), No nausea, No vomiting Objective Vital Signs: Date Time Temp Pulse Resp B/P (MAP) Pulse Ox O2 Delivery O2 Flow Rate FiO2 03/01/18 08:00 Room Air 03/01/18 07:50 36.8 64 15 118/76 (90) 98 Room Air 02/28/18 23:20 Room Air 02/28/18 22:50 36.6 65 16 114/73 (87) 98 Room Air 02/28/18 16:00 97 Room Air 02/28/18 15:38 37.0 64 18 137/85 (102) 97 Room Air General Appearance: WD/WN, no apparent distress Head: normocephalic, atraumatic Neck: supple Respiratory/Chest: chest non-tender, lungs clear Cardiovascular: regular rate, rhythm, no edema, no gallop Abdomen: normal bowel sounds, non tender, non distended, soft Extremities: non-tender, no pedal edema Laboratory Results: Results Past 24 Hours Test 03/01/18 05:58 Range/Units White Blood Count 7.41 4.8-10.8 K/uL Red Blood Count 4.68 4.7-6.1 M/uL Hemoglobin 13.8 14.0-18.0 g/dL Hematocrit 41.6 42-52 % Mean Corpuscular Volume 88.9 80-100 fL Mean Corpuscular Hemoglobin 29.5 25-34 pg Mean Corpuscular Hemoglobin Concent 33.2 32-36 g/dl RDW Standard Deviation 41.4 36.4-46.3 fL RDW Coefficient of Variation 12.9 11.5-14.5 % Platelet Count 228 130-400 K/uL Mean Platelet Volume 9.1 7.4-10.4 fL Microbiology Results 02/28/18 C.difficile Toxin B Gene (PCR) - Final, Complete No C. difficile toxin B gene detected Assessment & Plan diverticulitis; perforated and walled-off -IV abx -advance diet -regular diet tomorrow if does well -home sunday/sunday depending on clinical progress
[2018-03-01] MEDS ORDERED: AMOX875T PO (09:13)
[2018-03-01] MEDS ORDERED: OXYC-57 PO (09:13)
--- NOTE | 2018-03-01 09:15 | Progress Note ---
Progress Note Date of Service Mar 01, 2018. Progress Note Patient will stay over the weekend Home Sunday with IV abx
[2018-03-01 10:00] VITALS: O2SAT 98
[2018-03-01 15:05] VITALS: BP 166/79; PULSE 68; TEMP 37.3; O2SAT 99
[2018-03-01 15:55] VITALS: O2SAT 99
[2018-03-01 23:04] VITALS: BP 122/72; PULSE 71; TEMP 36.5; O2SAT 98
[2018-03-02] MEDS: PIPERACILL/TAZOBAC IV 3.375 GM in DEXTROSE 5% 100ML 100 ML IV SCH ×3 (00:26→15:34)
[2018-03-02] MEDS: D5W AND 1/2NSS + 20MEQ KCL 1,000 ML IV SCH (00:26)
--- NOTE | 2018-03-02 06:42 | Surgery Progress Note ---
Surgery Progress Note Date of Service Mar 02, 2018. Subjective Post OP Day: HD #6 + feeling well, + ambulating, + bowel movement, + flatus, + pain controlled, + diet (Tolerating full liquids), No complaints, No nausea, No vomiting Objective Vital Signs: Date Time Temp Pulse Resp B/P (MAP) Pulse Ox O2 Delivery O2 Flow Rate FiO2 03/02/18 00:30 Room Air 03/01/18 23:04 36.5 71 16 122/72 (89) 98 Room Air 03/01/18 15:55 99 Room Air 03/01/18 15:05 37.3 68 18 166/79 (108) 99 Room Air 03/01/18 10:00 98 Room Air 03/01/18 08:00 Room Air 03/01/18 07:50 36.8 64 15 118/76 (90) 98 Room Air General Appearance: no apparent distress Respiratory/Chest: normal breath sounds, no respiratory distress Abdomen: normal bowel sounds, non tender, non distended, soft Assessment & Plan Diverticulitis; perforated and walled-off Covering for [facility] general surgery this weekend. Doing well. Abdomen soft, nontender. + BM. Tolerating full liquids, no N/V. Ambulating without issue. afebrile, vitals stable. Continue IV Abx. Advance to low-fiber diet. Plan to d/c Sunday with IV Abx. Contact with questions or concerns.
[2018-03-02 07:49] VITALS: BP 144/94; PULSE 63; TEMP 36.9; O2SAT 97
[2018-03-02 14:53] VITALS: BP 131/84; PULSE 78; TEMP 36.9; O2SAT 97
[2018-03-02 15:29] VITALS: O2SAT 97
[2018-03-02 23:23] VITALS: BP 144/92; PULSE 61; TEMP 36.5; O2SAT 100
[2018-03-03] MEDS: PIPERACILL/TAZOBAC IV 3.375 GM in DEXTROSE 5% 100ML 100 ML IV SCH ×4 (00:04→23:49)
[2018-03-03] MEDS: D5W AND 1/2NSS + 20MEQ KCL 1,000 ML IV SCH ×2 (00:05→15:30)
[2018-03-03 06:35] LABS: CREATININE 1.01 mg/dl (0.60-1.40)
--- NOTE | 2018-03-03 06:47 | Surgery Progress Note ---
Surgery Progress Note Date of Service Mar 03, 2018. Subjective + feeling well, + ambulating, + bowel movement, + flatus, + pain controlled, + diet (Tolerating Low fiber diet), No complaints, No nausea, No vomiting Objective Vital Signs: Date Time Temp Pulse Resp B/P (MAP) Pulse Ox O2 Delivery O2 Flow Rate FiO2 03/03/18 00:05 Room Air 03/02/18 23:23 36.5 61 16 144/92 (109) 100 Room Air 03/02/18 15:29 97 Room Air 03/02/18 14:53 36.9 78 18 131/84 (100) 97 Room Air 03/02/18 13:55 Room Air 03/02/18 08:15 Room Air 03/02/18 07:49 36.9 63 16 144/94 (111) 97 Room Air General Appearance: no apparent distress Respiratory/Chest: no respiratory distress Abdomen: non tender, non distended, soft Laboratory Results: Results Past 24 Hours Test 03/03/18 05:27 Range/Units Creatinine 1.01 0.60-1.40 mg/dl Est Creatinine Clear Calc Drug Dose 97.0 ml/min Estimated GFR () 95.3 Estimated GFR (Non- 82.2 Assessment & Plan Diverticulitis; perforated and walled-off Covering for [facility] general surgery this weekend. Continues to improve, Abdomen soft, non-tender. afebrile. Tolerating low fiber diet, no N/V. Continue IV Abx. Plan for d/c tomorrow with IV Abx. Contact with questions or concerns. Diverticulitis; perforated and walled-off Covering for [facility] general surgery this weekend. Doing well. Abdomen soft, nontender. + BM. Tolerating full liquids, no N/V. Ambulating without issue. afebrile, vitals stable. Continue IV Abx. Advance to low-fiber diet. Plan to d/c Sunday with IV Abx. Contact with questions or concerns.
[2018-03-03 07:47] VITALS: BP_SYST 102; BP_SYST 134; BP_DIAS 66; BP_DIAS 87; PULSE 71; PULSE 76; TEMP 36.5; TEMP 36.8; O2SAT 97; O2SAT 98
[2018-03-03] MEDS ORDERED: NURSING VERBAL MED ORDER ONE (09:45)
[2018-03-03 15:14] VITALS: BP 139/87; PULSE 72; TEMP 36.9; O2SAT 92
[2018-03-03 22:52] VITALS: BP 127/75; PULSE 64; TEMP 36.4; O2SAT 99
[2018-03-04 06:32] LABS: CREATININE 1.03 mg/dl (0.60-1.40)
[2018-03-04 07:12] VITALS: BP 150/93; PULSE 69; TEMP 36.4; O2SAT 99
[2018-03-04] MEDS: PIPERACILL/TAZOBAC IV 3.375 GM in DEXTROSE 5% 100ML 100 ML IV SCH (07:38)
[2018-03-04] MEDS ORDERED: ERTA1INJ IV (13:29)
--- NOTE | 2018-03-04 13:34 | Discharge Instructions ---
Discharge Instructions Date of Service Mar 04, 2018. Admission Reason for Admission: Acute Diverticulitis Discharge Discharge Diagnosis / Problem: Acute Diverticulitis with multiple intra- abdominal abscesses Discharge Goals Goal(s): Decrease discomfort, Improve function, Therapeutic intervention Activity Recommendations Activity Limitations: per Instructions/Follow-up section Lifting Limitations: none Exercise/Sports Limitations: gradually increase as tolerated May Resume Sexual Activity: when tolerated Shower/Bathe: no limitations Driving or Machine Use: resume 1 day after discharge . Instructions / Follow-Up Instructions / Follow-Up Follow-up in surgical office in 1-2 weeks, please call office at [phone] If you develop abdominal pain, fevers, chills, nausea, vomiting please call office and if severe go to emergency room for further evaluation and management Low fiber diet for next few weeks to a month Avoid constipation: -Drink plenty of water, avoid foods that constipate, may take OTC stool softener if needed You will need a colonoscopy in 6-8 weeks to evaluate the colon and extent of diverticulosis. This will be scheduled as an outpatient once you are finished with antibiotics and having no more abdominal pain. Current Hospital Diet Patient's current hospital diet: Low Fiber Diet Discharge Diet Recommended Diet: Low Fiber Diet Pending Studies Studies pending at discharge: no Medical Emergencies . Who to Call and When: Medical Emergencies: If at any time you feel your situation is an emergency, please call 911 immediately. . Non-Emergent Contact Non-Emergency issues call your: Primary Care Provider, Surgeon Call Non-Emergent contact if: you have a fever, temperature is above 101, your pain is not controlled, your pain is worsening, your pain is unusual for you . "Provider Documentation" section prepared by Isabelle Patino. . [place] Drug Monitoring Program Search Results: patient reviewed within database, no issues identified
--- NOTE | 2018-03-04 14:06 | Surgery Progress Note ---
Surgery Progress Note Date of Service Mar 04, 2018. Subjective Post OP Day: HD # 7 + feeling well, + ambulating, + bowel movement, + flatus, + pain controlled, + diet (low fiber), No complaints, No nausea, No vomiting Objective Vital Signs: Date Time Temp Pulse Resp B/P (MAP) Pulse Ox O2 Delivery O2 Flow Rate FiO2 03/04/18 07:12 36.4 69 16 150/93 (112) 99 Room Air 03/04/18 06:50 Room Air 03/03/18 23:50 Room Air 03/03/18 22:52 36.4 64 16 127/75 (92) 99 Room Air 03/03/18 15:30 Room Air 03/03/18 15:14 36.9 72 18 139/87 (104) 92 Room Air General Appearance: WD/WN, no apparent distress Head: normocephalic, atraumatic Neck: trachea midline Respiratory/Chest: no respiratory distress, no accessory muscle use Abdomen: non tender, non distended, soft, no organomegaly, no pulsatile mass Laboratory Results: Results Past 24 Hours Test 03/04/18 05:28 Range/Units Creatinine 1.03 0.60-1.40 mg/dl Est Creatinine Clear Calc Drug Dose 95.1 ml/min Estimated GFR () 93.0 Estimated GFR (Non- 80.3 Assessment & Plan Acute diverticulitis with intra-abdominal abscesses -vitals stable, afebrile - abdominal pain minimal, abdomen soft, nondistended, nontender on examination - tolerating low fiber diet, no n/v Plan: Patient had PICC line placed on Sunday. He will need 3 weeks of IV antibiotics at home. Home health set up for patient IV Zosyn will be switched to IV Invanz 1 gm daily for 3 weeks Will order IV Invanz 1 gm now and then can be discharged home late afternoon early evening Discharge instructions reviewed with patient, follow up in surgical office in 1- [address] Cooper who agrees with above.
[2018-03-04 14:18] VITALS: BP 150/93; PULSE 69; TEMP 36.4; O2SAT 99
[2018-03-04 15:21] VITALS: BP 136/92; PULSE 70; TEMP 36.9; O2SAT 98
[2018-03-04] MEDS ORDERED: ERTAPENEM IV 1 GM in SODIUM CHLOR 0.9% AD-VAN 50ML 50 ML IV SCH (16:00)
--- NOTE | 2018-03-08 07:53 | Discharge Summary ---
Discharge Summary Dates Admission Date / Time: Feb 25, 2018 at 13:41 Discharge Date: Mar 04, 2018 Dispostion / Condition Discharge Disposition: Home with services Condition at Discharge: Good Principal Diagnosis (1) Acute diverticulitis Problem List (1) Acute cholecystitis due to biliary calculus (2) Hydronephrosis Consultations / Procedures Consultations: Cafeteria Director Procedures: PICC line placement Vaccinations: None Pending Studies / Follow-Up None Medication Reconciliation New Medications: Ertapenem Sodium (Invanz) 1 Gm Inj 1 GM IV DAILY for 21 Days, VIAL Admission HPI Per the Admitting provider: Mandeep is a pleasant 57 year-old male who presented to emergency department this morning with complaint of abdominal pain, abdominal bloating, chills/shakes starting Sunday around 1500. States he was in his normal state of health on Sunday. Describes the pain as sharp stabbing pain, worse with any movement, and located in the lower abdomen with radiation down into the groin. States he has been in the emergency room three other times for gas pains throughout this year. Had his gallbladder removed laparoscopically by Dr. Cabrera in October of this year. Denies of known fevers, nausea, vomiting, chest pain, shortness of breath, difficulty breathing, changes in bowel habits, diarrhea, constipation, blood in stools or black tarry stools, difficulty urinating, or blood in urine. States he noticed decreased urine output and dark orange color but no difficulty urinating. Never had diverticulosis/diverticulitis in the past. ER work-up included labs which showed leukocytosis of 14K, afebrile, CT scan of abdomen and pelvis with oral contrast showing findings consistent with acute complicated sigmoid diverticulitis. Multiple small abscesses the largest containing a focus of gas and measuring 3.2 cm. This largest abscess may or may not be in continuity with the sigmoid colon though no oral contrast opacified this collection to suggest fistulization. Admission Exam Per the Admitting provider: General Appearance: WD/WN, no apparent distress Head: normocephalic, atraumatic Eyes: sclerae normal ENT: hearing grossly normal Neck: trachea midline Respiratory/Chest: no respiratory distress, no accessory muscle use Cardiovascular: regular rate, rhythm, no murmur Abdomen/GI: soft, no organomegaly, no pulsatile mass, + tenderness (lower abdominal tenderness more so in the RLQ on mild palpation with guarding, no rigidity, peritonitis, or rebound) Back: normal inspection Extremities/Musculoskelatal: no pedal edema Neurologic/Psych: alert, normal mood/affect, oriented x 3 Skin: normal color, warm/dry, no rash Hospital Course (1) Acute diverticulitis Patient was admitted to the medical/surgical floor for conservative management with IV fluids, IV broad-spectrum antibiotics (Zosyn), IV pain medication as needed, IV Zofran as needed for nausea, and kept n.p.o. for complete bowel rest. SCDs for DVT prophylaxis were ordered. Patient was evaluated on hospital day #1 in stable condition. He had positive bowel movement and positive flatus and was feeling "100% better". Vital signs stable and patient remained afebrile. Leukocytosis resolved to 10,000. Diet was advanced to clear liquids and IV antibiotics were continued. Hospital day #2, patient still feeling better and having less pain. Having multiple loose bowel movements and tolerating clear liquids. No leukocytosis on labs. Vital signs stable and afebrile. Clear liquid diet was continued. IV antibiotics were continued. Plan for repeat CT scan with IV and oral contrast in the morning of hospital day #3. Repeat CT scan essentially unchanged with one small new abscess however patient still clinically improving and pain was minimal. Tolerated clear liquids. Having loose multiple stools therefore C. difficile was checked and was negative. access services assistant was consulted as planned for PICC line and home with IV antibiotics for a total of 3 weeks. PICC line was placed on hospital day #4 and IV Zosyn was continued, diet was advanced to full liquids. Hospital day #5 patient still feeling well no leukocytosis and afebrile. Abdominal pain minimal and feeling better. Tolerating full liquids diet was advanced to low fiber diet. No changes on hospital day #6. Patient evaluated on hospital day #7 and feeling well and was ready to go home. Vital signs stable and afebrile. Minimal abdominal pain. Tolerating low fiber diet. access services assistant had set up home health to help with PICC line and administration of IV antibiotics for 3 weeks. Originally was planned to go home on IV Zosyn however this was changed to IV Invanz 1 g daily for 3 weeks. Patient was given a one-time dose of 1 g of Invanz while still in the hospital to check for any adverse reactions. Patient tolerated well and was discharged home on hospital day #7 in stable condition. Discharge Instructions Avoid high fiber diet for next few weeks to a month Avoid constipation or straining Will need total of 3 weeks of IV antibiotics, home health set up to help at home Will need colonoscopy in 6-8 weeks once pain resolved and IV antibiotic course finished with no relapse of symptoms Follow-up in surgical office in 2 weeks Copies To Primary Care Provider: No Doctor, Assigned.
== END 2018-03-04 16:30 | disposition home health service (06) | DRG 392 ==
LOC: C.EDB 08:18 → C.MSN 13:41 → ENRESERV 13:59
PROVIDERS: ADMIT Surgery; ATTEND Surgery
PROC: 02HV33Z Insertion of Infusion Device into Superior Vena Cava, Percutaneous Approach (ICD-10-PCS; principal; 2018-03-01)
DX: K57.80 Diverticulitis of intestine, part unspecified, with perforation and abscess without bleeding (principal)